=== PATIENT | male | born 1980 | race Caucasian/White ===

== ENCOUNTER → 2016-08-30 | Outpatient (CLI) | payer BC ==
[~2016-08-30] VITALS: Ht 185.4 cm; Wt 208.0 kg
[~2016-08-30] MED LIST: AMBIEN 10MG10 MG PO; AMOXICILLIN 50500 MG PO; ATIVAN 1MG T1 MG/TAB PO; CEPHALEXIN500 M1 PO; CIPRO 500MG TA500 MG PO; CIPRO500 MG PO; DAZIDOX10 MG PO; DESYREL 100MG100 MG PO; DOXYCYCLINE 10100 MG PO; FLEXERIL 1010 MG/TAB PO; FLOMAX 0.40.4 MG/CAP PO; GLUCOPHAGE1000 MG PO; GLUCOPHAGE500 MG/TAB PO; KLONOPIN 0.5MG0.5 MG PO; KLONOPIN 1MG1 MG PO; LORTAB 5/500 501 TAB PO; NAPROSYN500 MG PO; NO HOME MEDICATIONS; NORCO 325 MG-51 TAB PO; NORCO 325 MG-7.1 TAB PO; PEN-VEE K500 MG PO; PERCOCET 325 MG1 TA2 PO; PERCOCET 325 MG1 TAB PO; PRINZIDE 12.5 M1 TA1 PO; PRINZIDE 25 MG-1 TAB PO; PYRIDIUM 100MG100 MG PO; PYRIDIUM200 M1 PO; ULTRAM 50MG TAB50 MG PO; ZOFRAN 4MG T4 MG/TAB PO; ZOFRAN ODT8 MG PO; ZOFRAN8 MG PO; ZOLOFT 100MG100 MG PO; ZOLOFT 50MG50 MG; ZYLOPRIM 300MG300 MG PO
[2016-08-30 12:45] VITALS: BP 144/78; PULSE 101
[2016-08-30 15:19] VITALS: BP 144/78; PULSE 101
== END ==
LOC: LIGHT 10:15
DX: E66.01 Morbid (severe) obesity due to excess calories (principal); Z68.44 Body mass index [BMI] 60.0-69.9, adult; F32.89 Other specified depressive episodes; I10 Essential (primary) hypertension; E16.1 Other hypoglycemia

== ENCOUNTER → 2016-10-11 | Outpatient (CLI) | payer BC ==
[~2016-10-11] VITALS: Ht 185.4 cm; Wt 209.1 kg
[2016-10-11 13:15] VITALS: BP 163/86; PULSE 99
[2016-10-11 17:21] VITALS: BP 163/86; PULSE 99
== END ==
LOC: LIGHT 13:15
DX: I10 Essential (primary) hypertension (principal); E16.1 Other hypoglycemia; F32.89 Other specified depressive episodes; E66.01 Morbid (severe) obesity due to excess calories; Z68.44 Body mass index [BMI] 60.0-69.9, adult

== ENCOUNTER → 2016-10-25 | Outpatient (CLI) | payer BC | LOC: BHSO 08:44 | DX: Z02.89 Encounter for other administrative examinations (principal) ==

== ENCOUNTER 2017-07-16 19:30 | Emergency (ER) | payer BC ==
[~2017-07-16] VITALS: Ht 188 cm; Wt 196.8 kg
[~2017-07-16 19:30] MED LIST changes: +LOPRESSOR 225 MG/TAB; +ZANTAC 150MG T150 MG
[2017-07-16 19:43] VITALS: BP 134/96; TEMP 97.9
[2017-07-16 20:18] LABS: BASO # 0.1 (0.0-0.2); BASO % 0.6 % (0.0-2.0); EOS # 0.6 (0.0-0.7); GRAN # 7.5 (1.4-6.5); GRAN % 65.9 % (42.2-75.2); HEMOGLOBIN 15.8 g/dl (13.5-18.0); LYMPH # 2.4 (1.2-3.4); LYMPH % 20.8 % (20.0-51.0); MEAN CELL VOLUME 82 fl (80.0-100.0); MEAN CORPUSCULAR HEMOGLOBIN 27 pg (27.0-31.0); MEAN CORPUSCULAR HGB CONC 33 g/dl (33.0-37.0); MEAN PLATELET VOLUME 9.1 fl (7.4-10.4); MONO # 0.8 (0.1-0.6); MONO % 7.1 % (1.7-9.3); PLATELET COUNT 335 K/mm3 (130-400); RED BLOOD COUNT 5.85 M/mm3 (4.20-5.60); WHITE BLOOD COUNT 11.4 K/mm3 (4.8-10.8)
[2017-07-16 20:33] LABS: ADJUSTED CALCIUM 9.4 mg/dL (8.4-10.2); ALBUMIN 4.6 gm/dL (3.5-5.0); BILIRUBIN,TOTAL 0.6 mg/dL (0.0-1.0); CALCIUM 9.9 mg/dL (8.4-10.2); CREATININE, serum 0.95 mg/dL (0.66-1.25); POTASSIUM 4.3 mmol/L (3.4-5.0); TOTAL PROTEIN 8.8 gm/dL (6.4-8.2)
[2017-07-16 21:16] LABS: COLLECTION METHOD CLEAN CATCH
[2017-07-16 21:35] LABS: MUCOUS Present /lpf; PH 6 (5-8); SQUAMOUS EPITHELIAL 0-2 /hpf; URINE APPEARANCE Clear; URINE BACTERIA None Seen /hpf; URINE BILIRUBIN Negative (NEGATIVE); URINE BLOOD Negative (NEGATIVE); URINE COLOR Yellow; URINE GLUCOSE Negative (NEGATIVE); URINE KETONE Negative (NEGATIVE); URINE LEUKOCYTE ESTERASE Negative (NEGATIVE); URINE PROTEIN(semi-quant) Negative (NEGATIVE); URINE UROBILINOGEN Negative (NEGATIVE); URINE WBC 0-2 /hpf
[2017-07-16 23:30] VITALS: PULSE 124
== END 2017-07-16 23:26 | disposition home or self-care (01) ==
LOC: COL.ER 19:30
PROVIDERS: Emergency Medicine
DX: K43.9 Ventral hernia without obstruction or gangrene (principal); I10 Essential (primary) hypertension; M10.9 Gout, unspecified; E11.9 Type 2 diabetes mellitus without complications; E66.9 Obesity, unspecified; Z68.43 Body mass index [BMI] 50.0-59.9, adult; Z87.442 Personal history of urinary calculi; Z90.49 Acquired absence of other specified parts of digestive tract; Z87.891 Personal history of nicotine dependence; Z79.84 Long term (current) use of oral hypoglycemic drugs
CPT/HCPCS: J2550; J2765; J3010; J7030; Q9967

== ENCOUNTER 2017-08-11 18:16 | Emergency (ER) | payer BC ==
[~2017-08-11] VITALS: Ht 188 cm; Wt 209.1 kg
[2017-08-11 18:19] VITALS: TEMP 98.2
[2017-08-11 18:45] LABS: BASO # 0.1 (0.0-0.2); BASO % 0.5 % (0.0-2.0); EOS # 0.5 (0.0-0.7); EOS % 3.7 % (0-4.0); GRAN # 9.8 (1.4-6.5); GRAN % 75.1 % (42.2-75.2); HEMATOCRIT 45.4 % (42.0-52.0); LYMPH # 1.9 (1.2-3.4); LYMPH % 14.2 % (20.0-51.0); MEAN CELL VOLUME 82 fl (80.0-100.0); MEAN CORPUSCULAR HEMOGLOBIN 27 pg (27.0-31.0); MEAN CORPUSCULAR HGB CONC 33 g/dl (33.0-37.0); MONO # 0.8 (0.1-0.6); PLATELET COUNT 358 K/mm3 (130-400); RED BLOOD COUNT 5.56 M/mm3 (4.20-5.60); WHITE BLOOD COUNT 13.1 K/mm3 (4.8-10.8)
[2017-08-11 18:50] LABS: ADJUSTED CALCIUM 9.3 mg/dL (8.4-10.2); ALBUMIN 4.5 gm/dL (3.5-5.0); BILIRUBIN,TOTAL 0.8 mg/dL (0.0-1.0); CALCIUM 9.7 mg/dL (8.4-10.2); CREATININE, serum 0.89 mg/dL (0.66-1.25); POTASSIUM 3.7 mmol/L (3.4-5.0); TOTAL PROTEIN 8.9 gm/dL (6.4-8.2)
[2017-08-11] MEDS ORDERED: ZOFRAN 4MG T4 MG/TAB PO (19:56)
[2017-08-11 22:25] VITALS: BP 130/84; PULSE 90
[2017-08-11] MEDS ORDERED: CEPHALEXIN500 M1 PO (22:44)
== END 2017-08-11 22:59 | disposition home or self-care (01) ==
LOC: COL.ER 18:16
PROVIDERS: Emergency Medicine
DX: N20.1 Calculus of ureter (principal); Z87.442 Personal history of urinary calculi; Z79.84 Long term (current) use of oral hypoglycemic drugs
CPT/HCPCS: J1170; J1885; J2405; J7030

== ENCOUNTER 2017-08-22 21:40 | Observation (INO) | payer BC ==
[~2017-08-22] VITALS: Ht 188 cm; Wt 168.1 kg
[~2017-08-22 21:40] MED LIST changes: -LOPRESSOR 225 MG/TAB; +LOPRESSOR 225 MG/TAB PO
[2017-08-22 22:33] LABS: BASO # 0.1 (0.0-0.2); BASO % 0.6 % (0.0-2.0); EOS # 0.4 (0.0-0.7); EOS % 3.3 % (0-4.0); GRAN % 74.5 % (42.2-75.2); HEMATOCRIT 45.5 % (42.0-52.0); HEMOGLOBIN 15.1 g/dl (13.5-18.0); LYMPH # 1.6 (1.2-3.4); MEAN CELL VOLUME 82 fl (80.0-100.0); MEAN CORPUSCULAR HEMOGLOBIN 27 pg (27.0-31.0); MEAN CORPUSCULAR HGB CONC 33 g/dl (33.0-37.0); MONO # 0.7 (0.1-0.6); MONO % 6.2 % (1.7-9.3); PLATELET COUNT 279 K/mm3 (130-400); RED BLOOD COUNT 5.55 M/mm3 (4.20-5.60); WHITE BLOOD COUNT 10.8 K/mm3 (4.8-10.8)
[2017-08-22 22:57] LABS: ADJUSTED CALCIUM 9.5 mg/dL (8.4-10.2); ALBUMIN 4.3 gm/dL (3.5-5.0); BILIRUBIN,TOTAL 0.6 mg/dL (0.0-1.0); C-REACTIVE PROTEIN 1.3 mg/dL (0.0-0.9); CALCIUM 9.7 mg/dL (8.4-10.2); CREATININE, serum 0.84 mg/dL (0.66-1.25); POTASSIUM 3.4 mmol/L (3.4-5.0); TOTAL PROTEIN 8.5 gm/dL (6.4-8.2)
[2017-08-23] VITALS (9 sets, daily range): BP systolic 106–169; BP diastolic 54–102; PULSE 73–81; TEMP 97.6–98.4
[2017-08-23] MEDS ORDERED: ZANTAC 150150 MG (02:48)
[2017-08-23 04:05] LABS: AMPHETAMINE URINE NEGATIVE; BARBITURATES URINE NEGATIVE; BENZODIAZEPINES URINE NEGATIVE; BUPRENORPHINE URINE NEGATIVE; METHADONE URINE NEGATIVE; OPIATES URINE POSITIVE; OXYCODONE URINE NEGATIVE; PHENCYCLIDINE URINE NEGATIVE; PROPOXYPHENE URINE NEGATIVE; THC CANNABINOIDS URINE NEGATIVE; TRICYCLIC ANTIDEPRESS URINE NEGATIVE
[2017-08-23 04:35] LABS: COLLECTION METHOD CLEAN CATCH
[2017-08-23 04:49] LABS: MUCOUS Present /lpf; PH 5 (5-8); SQUAMOUS EPITHELIAL None Seen /hpf; URINE APPEARANCE Clear; URINE BACTERIA Rare /hpf; URINE BILIRUBIN Negative (NEGATIVE); URINE BLOOD 2+ (NEGATIVE); URINE COLOR Yellow; URINE GLUCOSE Negative (NEGATIVE); URINE KETONE Negative (NEGATIVE); URINE LEUKOCYTE ESTERASE Negative (NEGATIVE); URINE PROTEIN(semi-quant) 2+ (NEGATIVE); URINE RBC >50 /hpf; URINE WBC 0-2 /hpf
[2017-08-23 07:34] LABS: ADJUSTED CALCIUM 9.1 mg/dL (8.4-10.2); ALBUMIN 3.5 gm/dL (3.5-5.0); BILIRUBIN,TOTAL 0.5 mg/dL (0.0-1.0); CALCIUM 8.7 mg/dL (8.4-10.2); CREATININE, serum 0.8 mg/dL (0.66-1.25); POTASSIUM 3.6 mmol/L (3.4-5.0); TOTAL PROTEIN 7.3 gm/dL (6.4-8.2)
[2017-08-24 01:47] VITALS: BP 130/69; PULSE 66; TEMP 97.3
[2017-08-24 05:14] VITALS: BP 153/93; PULSE 78; TEMP 98.3
[2017-08-24 08:00] VITALS: BP 139/84; PULSE 79; TEMP 98
== END 2017-08-24 10:40 | disposition home or self-care (01) ==
LOC: COL.ER 21:40 → SURG 08-23 01:19
PROVIDERS: Family Medicine
DX: N13.2 Hydronephrosis with renal and ureteral calculous obstruction (principal); K46.9 Unspecified abdominal hernia without obstruction or gangrene; Z87.442 Personal history of urinary calculi; E66.01 Morbid (severe) obesity due to excess calories; R73.03 Prediabetes; K21.9 Gastro-esophageal reflux disease without esophagitis; I10 Essential (primary) hypertension; Z90.49 Acquired absence of other specified parts of digestive tract; M47.896 Other spondylosis, lumbar region; J40 Bronchitis, not specified as acute or chronic; K44.9 Diaphragmatic hernia without obstruction or gangrene; F32.9 Major depressive disorder, single episode, unspecified; F41.9 Anxiety disorder, unspecified; F17.210 Nicotine dependence, cigarettes, uncomplicated
CPT/HCPCS: 99222-AI; C1769; C2617; G0378; J0690; J1170; J1885; J2405; J2704; J3010; J7030; J7050; Q9967

== ENCOUNTER 2017-09-20 23:22 | Emergency (ER) | payer BC ==
[~2017-09-20] VITALS: Ht 188 cm; Wt 206.4 kg
[~2017-09-20 23:22] MED LIST changes: +ZANTAC 150150 MG
[2017-09-20 23:31] VITALS: BP 159/98; TEMP 97.7
[2017-09-21 00:26] LABS: COLLECTION METHOD CLEAN CATCH
[2017-09-21 00:32] LABS: BASO # 0.1 (0.0-0.2); BASO % 0.4 % (0.0-2.0); EOS # 0.6 (0.0-0.7); GRAN # 8.7 (1.4-6.5); HEMATOCRIT 42.7 % (42.0-52.0); HEMOGLOBIN 14.4 g/dl (13.5-18.0); LYMPH # 2.2 (1.2-3.4); LYMPH % 17.8 % (20.0-51.0); MEAN CELL VOLUME 82 fl (80.0-100.0); MEAN CORPUSCULAR HEMOGLOBIN 28 pg (27.0-31.0); MEAN CORPUSCULAR HGB CONC 34 g/dl (33.0-37.0); MEAN PLATELET VOLUME 9.4 fl (7.4-10.4); MONO # 0.8 (0.1-0.6); MONO % 6.3 % (1.7-9.3); PLATELET COUNT 340 K/mm3 (130-400); RED BLOOD COUNT 5.21 M/mm3 (4.20-5.60); REDCELL DISTRIBUTION WIDTH-CV 14.3 % (11.5-14.5)
[2017-09-21 00:36] LABS: HYALINE CAST >12 /lpf; PH 6 (5-8); SQUAMOUS EPITHELIAL None Seen /hpf; URINE APPEARANCE Cloudy; URINE BACTERIA None Seen /hpf; URINE BILIRUBIN Negative (NEGATIVE); URINE BLOOD 3+ (NEGATIVE); URINE COLOR Red; URINE GLUCOSE Negative (NEGATIVE); URINE KETONE Negative (NEGATIVE); URINE LEUKOCYTE ESTERASE Trace (NEGATIVE); URINE NITRATE Negative (NEGATIVE); URINE PROTEIN(semi-quant) 2+ (NEGATIVE); URINE RBC >50 /hpf; URINE UROBILINOGEN Negative (NEGATIVE)
[2017-09-21 00:45] LABS: ALBUMIN 4.4 gm/dL (3.5-5.0); BILIRUBIN,TOTAL 0.5 mg/dL (0.0-1.0); C-REACTIVE PROTEIN 2.5 mg/dL (0.0-0.9); CALCIUM 9.8 mg/dL (8.4-10.2); CREATININE, serum 0.85 mg/dL (0.66-1.25); POTASSIUM 3.8 mmol/L (3.4-5.0); TOTAL PROTEIN 8.4 gm/dL (6.4-8.2)
[2017-09-21] MEDS ORDERED: ZOFRAN ODT4 MG PO (01:06)
[2017-09-21] MEDS ORDERED: PERCOCET 325 MG1 TA2 PO (01:06)
[2017-09-21] MEDS ORDERED: OMNICEF 300MG300 MG PO (01:06)
[2017-09-21 03:50] VITALS: PULSE 88
== END 2017-09-21 03:52 | disposition home or self-care (01) ==
LOC: COL.ER 23:22
PROVIDERS: Emergency Medicine
DX: R10.9 Unspecified abdominal pain (principal); L02.91 Cutaneous abscess, unspecified; I10 Essential (primary) hypertension; E11.9 Type 2 diabetes mellitus without complications; Z90.49 Acquired absence of other specified parts of digestive tract; Z95.5 Presence of coronary angioplasty implant and graft; Z98.890 Other specified postprocedural states; Z79.84 Long term (current) use of oral hypoglycemic drugs
CPT/HCPCS: J0696; J1170; J1885; J2405; J7030; J7040

== ENCOUNTER 2018-04-25 22:50 | Emergency (ER) | payer BC ==
[~2018-04-25] VITALS: Ht 188 cm; Wt 204.5 kg
[~2018-04-25 22:50] MED LIST changes: +CARAFATE 1GM1 G PO; +OMNICEF 300MG300 MG PO; +PRILOSEC10 MG PO; +PROTONIX 40MG T40 MG PO; +ZOFRAN ODT4 MG PO
[2018-04-25 22:54] VITALS: PULSE 109
[2018-04-25 23:22] LABS: BASO # 0.1 (0.0-0.2); BASO % 0.5 % (0.0-2.0); EOS # 0.2 (0.0-0.7); EOS % 1.4 % (0-4.0); GRAN # 12.3 (1.4-6.5); GRAN % 83.7 % (42.2-75.2); HEMATOCRIT 48.2 % (42.0-52.0); HEMOGLOBIN 15.6 g/dl (13.5-18.0); LYMPH # 1.4 (1.2-3.4); LYMPH % 9.8 % (20.0-51.0); MEAN CELL VOLUME 84 fl (80.0-100.0); MEAN CORPUSCULAR HEMOGLOBIN 27 pg (27.0-31.0); MEAN CORPUSCULAR HGB CONC 32 g/dl (33.0-37.0); MEAN PLATELET VOLUME 9.4 fl (7.4-10.4); MONO # 0.5 (0.1-0.6); MONO % 3.7 % (1.7-9.3); PLATELET COUNT 432 K/mm3 (130-400); RED BLOOD COUNT 5.75 M/mm3 (4.20-5.60)
[2018-04-25 23:27] LABS: INR 1.2 (0.8-3.0); PROTHROMBIN TIME 13.8 SECONDS (9.7-12.8)
[2018-04-25] MEDS ORDERED: DAZIDOX10 MG (23:34)
[2018-04-25 23:38] LABS: ALANINE AMINOTRANSFERASE 52 U/L (21-72); ALBUMIN 4.4 gm/dL (3.5-5.0); ALKALINE PHOSPHATASE 118 U/L (50-136); ANION GAP 16 mmol/L (7-16); AST,SGOT 84 U/L (15-37); BILIRUBIN,TOTAL 0.9 mg/dL (0.0-1.0); BLOOD UREA NITROGEN 16 mg/dL (9-20); CALCIUM 9.3 mg/dL (8.4-10.2); CARBON DIOXIDE 24 mmol/L (22-30); CHLORIDE 101 mmol/L (98-107); CREATININE, serum 1.13 mg/dL (0.66-1.25); GLUCOSE 168 mg/dL (74-106); POTASSIUM 3.9 mmol/L (3.4-5.0); SODIUM 141 mmol/L (137-145)
[2018-04-25 23:49] LABS: TROPONIN-I < 0.012 ng/mL (0.000-0.034)
[2018-04-26 02:57] LABS: COLLECTION METHOD CLEAN CATCH
[2018-04-26 03:16] LABS: GRANULAR CAST >12 /lpf; HYALINE CAST >12 /lpf; MUCOUS Present /lpf; PH 5 (5-8); SQUAMOUS EPITHELIAL 0-2 /hpf; URINE APPEARANCE Cloudy; URINE BACTERIA Rare /hpf; URINE BILIRUBIN Negative (NEGATIVE); URINE BLOOD Negative (NEGATIVE); URINE COLOR Amber; URINE GLUCOSE Negative (NEGATIVE); URINE KETONE Negative (NEGATIVE); URINE LEUKOCYTE ESTERASE Negative (NEGATIVE); URINE NITRATE Negative (NEGATIVE); URINE PROTEIN(semi-quant) 2+ (NEGATIVE); URINE RBC 0-2 /hpf
[2018-04-26 03:48] VITALS: BP 107/62
== END 2018-04-26 03:50 | disposition home or self-care (01) ==
LOC: COL.ER 22:50
PROVIDERS: Emergency Medicine
DX: T67.5XXA Heat exhaustion, unspecified, initial encounter (principal); E11.9 Type 2 diabetes mellitus without complications; I10 Essential (primary) hypertension; K21.9 Gastro-esophageal reflux disease without esophagitis; E66.01 Morbid (severe) obesity due to excess calories; Z90.49 Acquired absence of other specified parts of digestive tract; Z87.891 Personal history of nicotine dependence; Z79.84 Long term (current) use of oral hypoglycemic drugs; Z87.442 Personal history of urinary calculi; Z68.43 Body mass index [BMI] 50.0-59.9, adult
CPT/HCPCS: J2405; J2765; J7030

== ENCOUNTER 2018-07-10 15:42 | Emergency (ER) | payer BC ==
[~2018-07-10] VITALS: Ht 188 cm; Wt 147.3 kg
[~2018-07-10 15:42] MED LIST changes: +DAZIDOX10 MG
[2018-07-10 15:46] VITALS: TEMP 97.9
[2018-07-10 16:25] LABS: BASO # 0.1 (0.0-0.2); BASO % 0.6 % (0.0-2.0); EOS # 0.6 (0.0-0.7); EOS % 5.6 % (0-4.0); GRAN # 7.4 (1.4-6.5); GRAN % 71.6 % (42.2-75.2); HEMATOCRIT 47.2 % (42.0-52.0); HEMOGLOBIN 15.5 g/dl (13.5-18.0); LYMPH # 1.7 (1.2-3.4); LYMPH % 16.5 % (20.0-51.0); MEAN CELL VOLUME 82 fl (80.0-100.0); MEAN CORPUSCULAR HEMOGLOBIN 27 pg (27.0-31.0); MEAN CORPUSCULAR HGB CONC 33 g/dl (33.0-37.0); MONO # 0.5 (0.1-0.6); PLATELET COUNT 346 K/mm3 (130-400); RED BLOOD COUNT 5.77 M/mm3 (4.20-5.60); REDCELL DISTRIBUTION WIDTH-CV 13.9 % (11.5-14.5)
[2018-07-10 16:39] LABS: ALBUMIN 4.1 gm/dL (3.5-5.0); BILIRUBIN,TOTAL 0.4 mg/dL (0.0-1.0); C-REACTIVE PROTEIN 2.6 mg/dL (0.0-0.9); CALCIUM 9.1 mg/dL (8.4-10.2); CREATININE, serum 0.68 mg/dL (0.66-1.25); TOTAL PROTEIN 8.1 gm/dL (6.4-8.2)
[2018-07-10 18:00] VITALS: BP 131/91; PULSE 73
[2018-07-10] MEDS ORDERED: ZOFRAN ODT4 MG PO (18:02)
== END 2018-07-10 18:00 | disposition home or self-care (01) ==
LOC: COL.ER 15:42
PROVIDERS: Emergency Medicine
DX: K46.9 Unspecified abdominal hernia without obstruction or gangrene (principal); I10 Essential (primary) hypertension; E11.9 Type 2 diabetes mellitus without complications; Z90.49 Acquired absence of other specified parts of digestive tract; Z87.442 Personal history of urinary calculi; Z87.891 Personal history of nicotine dependence; Z79.84 Long term (current) use of oral hypoglycemic drugs
CPT/HCPCS: J1170; J2060; J2270; J2405; J7030; Q9967

== ENCOUNTER 2018-07-26 20:55 | Emergency (ER) | payer BC ==
[~2018-07-26] VITALS: Ht 188 cm; Wt 213.6 kg
[2018-07-26 20:59] VITALS: TEMP 97.8
[2018-07-26] MEDS ORDERED: LEXAPRO20 MG PO (21:10)
[2018-07-26 21:41] LABS: BASO # 0.1 (0.0-0.2); BASO % 0.6 % (0.0-2.0); EOS # 0.5 (0.0-0.7); EOS % 3.6 % (0-4.0); GRAN # 9.5 (1.4-6.5); GRAN % 75.5 % (42.2-75.2); HEMATOCRIT 48.1 % (42.0-52.0); HEMOGLOBIN 16.2 g/dl (13.5-18.0); LYMPH # 1.8 (1.2-3.4); MEAN CELL VOLUME 81 fl (80.0-100.0); MEAN CORPUSCULAR HEMOGLOBIN 27 pg (27.0-31.0); MEAN CORPUSCULAR HGB CONC 34 g/dl (33.0-37.0); MONO # 0.7 (0.1-0.6); MONO % 5.7 % (1.7-9.3); PLATELET COUNT 356 K/mm3 (130-400); RED BLOOD COUNT 5.94 M/mm3 (4.20-5.60); REDCELL DISTRIBUTION WIDTH-CV 13.9 % (11.5-14.5)
[2018-07-26 21:58] LABS: ALBUMIN 4.4 gm/dL (3.5-5.0); BILIRUBIN,TOTAL 0.7 mg/dL (0.0-1.0); C-REACTIVE PROTEIN 2.3 mg/dL (0.0-0.9); CALCIUM 10.3 mg/dL (8.4-10.2); CREATININE, serum 0.72 mg/dL (0.66-1.25); POTASSIUM 4.3 mmol/L (3.4-5.0); TOTAL PROTEIN 8.9 gm/dL (6.4-8.2)
[2018-07-27 00:08] LABS: COLLECTION METHOD CLEAN CATCH
[2018-07-27 00:16] LABS: MUCOUS Present /lpf; PH 5 (5-8); SQUAMOUS EPITHELIAL 0-2 /hpf; URINE APPEARANCE Hazy; URINE BACTERIA Rare /hpf; URINE BILIRUBIN Negative (NEGATIVE); URINE BLOOD Negative (NEGATIVE); URINE COLOR Yellow; URINE GLUCOSE Negative (NEGATIVE); URINE KETONE Negative (NEGATIVE); URINE LEUKOCYTE ESTERASE Negative (NEGATIVE); URINE NITRATE Negative (NEGATIVE); URINE PROTEIN(semi-quant) 2+ (NEGATIVE); URINE UROBILINOGEN Negative (NEGATIVE)
[2018-07-27 01:40] VITALS: BP 130/77; PULSE 121
== END 2018-07-27 02:10 | disposition short-term general hospital (02) ==
LOC: COL.ER 20:55
PROVIDERS: Nurse Practitioner
DX: K56.609 Unspecified intestinal obstruction, unspecified as to partial versus complete obstruction (principal); E11.9 Type 2 diabetes mellitus without complications; I10 Essential (primary) hypertension; F41.9 Anxiety disorder, unspecified; F32.9 Major depressive disorder, single episode, unspecified; F17.210 Nicotine dependence, cigarettes, uncomplicated; Z87.442 Personal history of urinary calculi; Z98.890 Other specified postprocedural states; Z90.49 Acquired absence of other specified parts of digestive tract; Z79.84 Long term (current) use of oral hypoglycemic drugs
CPT/HCPCS: J1170; J1885; J2405; J2550; J7030; Q9967

== ENCOUNTER 2018-09-03 00:49 | Inpatient (IN) | payer BC ==
[2018-09-03] VITALS (8 sets, daily range): BP systolic 103–140; BP diastolic 62–106; PULSE 85–100; TEMP 97.3–98.5
[~2018-09-03] VITALS: Ht 188 cm; Wt 210.0 kg
[~2018-09-03 00:49] MED LIST changes: +LEXAPRO20 MG PO
[2018-09-03 01:29] LABS: BASO # 0.1 (0.0-0.2); BASO % 0.5 % (0.0-2.0); EOS # 0.6 (0.0-0.7); GRAN # 7.8 (1.4-6.5); GRAN % 68.1 % (42.2-75.2); HEMATOCRIT 43.8 % (42.0-52.0); HEMOGLOBIN 14.4 g/dl (13.5-18.0); LYMPH # 2.2 (1.2-3.4); LYMPH % 19.3 % (20.0-51.0); MEAN CELL VOLUME 83 fl (80.0-100.0); MEAN CORPUSCULAR HEMOGLOBIN 27 pg (27.0-31.0); MEAN CORPUSCULAR HGB CONC 33 g/dl (33.0-37.0); MEAN PLATELET VOLUME 9.5 fl (7.4-10.4); MONO # 0.7 (0.1-0.6); MONO % 6.5 % (1.7-9.3); PLATELET COUNT 317 K/mm3 (130-400); REDCELL DISTRIBUTION WIDTH-CV 13.8 % (11.5-14.5)
[2018-09-03] MEDS ORDERED: PRIL40 PO (01:37)
[2018-09-03 01:38] LABS: ALBUMIN 3.8 gm/dL (3.5-5.0); BILIRUBIN,TOTAL 0.3 mg/dL (0.0-1.0); C-REACTIVE PROTEIN 1.2 mg/dL (0.0-0.9); CALCIUM 9.1 mg/dL (8.4-10.2); CREATININE, serum 0.65 mg/dL (0.66-1.25); POTASSIUM 4.3 mmol/L (3.4-5.0); TOTAL PROTEIN 7.6 gm/dL (6.4-8.2)
[2018-09-03] MEDS ORDERED: ROXICODONE 55 MG/TAB PO (01:38)
--- NOTE | 2018-09-03 05:15 | NUR ---
PT ADMITTED TO 322-2 WITH Dx OF SMALL BOWEL OBSTRUCTION. DILAUDID ADMIN. PT A BIT NAUSEATED. ADMITTING M.D. CALLED REGARDING PAIN AND NAUSEA. 5 PAGE ADMISSION ASSESSMENT COMPLETE. PT PUT IN BARIATRIC BED.
--- NOTE | 2018-09-03 08:00 | NUR ---
PATIENT IS A&O. NOTED HR OF 102. VSS. PATIENT RATES PAIN HIGH WHENEVER ASKED IN RLQ. PATIENT HAS HX OF SBO AND HERNIA REPAIR. HERNIA APPEARS TO HAVE RE-HERNIATED AND IS BULDGING IN RLQ WHERE PATIENT REPORTS PAIN. PATIENT CALLS OUT FOR PAIN MEDS EVERY HOUR. PATIENT IS VERY OBESE WITH HYPO BOWLS. C/O N/V LAST NIGHT. PATIENT REFUSING NG AT THIS TIME. BOWL SOUNDS HYPO ACTIVE EXCEPT OVER HERNIA WHERE BOWL SOUNDS ARE ACTIVE. CURRENTLY NPO. HEAD TO TOE ASSESSMENT COMPLETE.
--- NOTE | 2018-09-03 11:00 | NUR ---
PATIENT CALLING OUT EVERY HOUR FOR IV DIALUDID. SEE ORDERS FOR DILAUDID GERIATRIC NURSE
--- NOTE | 2018-09-03 12:50 | NUR ---
PATIENT CALLED OUT FOR NAUSEA MEDS, GIVEN BY RN. PATIENT IS NOT INTERESTED IN HAVING AN NG PLACED FOR HIS OBSTRUCTION.
--- NOTE | 2018-09-03 14:20 | NUR ---
PATIENT CALLED OUT DUE TO PURCHASING EXPEDITOR BEEPING. PATIENT REACHED MAX LIMIT AND SEEMS ANNOYED THAT HE IS LOCKED OUT. NURSING EXPLAINED MEDICATION SAFETY AND RISK FOR OD. PATIENT DIDN'T SEEM CONCERNED ABOUT OD. PATIENT WENT THROUGH [facility] OF A 30CC DILAUDID SYRING SINCE PURCHASING EXPEDITOR WAS INITIATED JUST BEFORE NOON.
--- NOTE | 2018-09-03 15:19 | NUR ---
SW met with patient to discuss discharge planning. Patient lives in [facility]. His PCP is Dr Jermaine Peguero and he obtains his medications from [facility]. Patients contact is his father Neftaly, . ANNAMARIE will continue to follow for discharge needs.
--- NOTE | 2018-09-03 20:00 | NUR ---
Assessment completed. Patient is A&O x 4, resting in bed watching television. VSS. Dilaudid POUNCING MACHINE OPERATOR available for abdominal pain control. Reports pain a 7/10 to RLQ abdomen. Hypoactive bowel sounds noted. Denies any nausea at this time. Voiding with no difficulities. IVF infusing per orders. NPO at this time. Denies any concerns or needs. Bed is in a low position with call light in reach.
[2018-09-04] VITALS (11 sets, daily range): BP systolic 112–147; BP diastolic 58–89; PULSE 74–92; TEMP 97.5–98.2
--- NOTE | 2018-09-04 01:00 | NUR ---
Patient is resting in bed with eyes closed, does not appear to be in any distress. Dilaudid HAND STRIPPER button is at bedside and available for pain control as needed.
--- NOTE | 2018-09-04 04:06 | NUR ---
Patient has been resting for short periods at a time. Dilaudid HIGH DENSITY PRESS LABORER remains available for pain control, reports abdomen is still "sore." Continues to deny any nausea and reports not passing gas. IVF remain infusing. Up with standby assist, gait is steady. Denies any concerns or needs at this time, call light is within reach.
[2018-09-04 07:21] LABS: ALBUMIN 3.3 gm/dL (3.5-5.0); BILIRUBIN,TOTAL 0.6 mg/dL (0.0-1.0); CALCIUM 8.7 mg/dL (8.4-10.2); CREATININE, serum 0.65 mg/dL (0.66-1.25); POTASSIUM 4.6 mmol/L (3.4-5.0); TOTAL PROTEIN 6.9 gm/dL (6.4-8.2)
--- NOTE | 2018-09-04 08:00 | NUR ---
PATIENT RESTING IN BED WITH TV ON. PATIENT IS A&O. VSS. ALL LUNG GARCIA DIMINISHED UPON AUSCULTATION. PATIENT DENIES SHORTNESS OF BREATH. BOWEL SOUNDS ACTIVE ALL FOUR QUADRANTS. PATIENT IS NPO AT THIS TIME. PATIENT STATES THAT HE HAS HAD NAUSEA, BUT DENIES VOMITING. PATIENT DENIES THE NEED FOR ANTIEMETIC AT THIS TIME. GENERALIZED WEAKNESS NOTED. IV FLUIDS INFUSING TO LEFT AC IV VIA PUMP WITH INTERMEDIATE CARD TENDER PUMP. POSITIVE PEDAL PULSES EQUAL BILATERALLY. CALL LIGHT WITHIN REACH. NO OTHER NEEDS AT THIS TIME.
[2018-09-04 14:02] LABS: HEMATOCRIT 38.1 % (42.0-52.0); MEAN CELL VOLUME 85 fl (80.0-100.0); MEAN CORPUSCULAR HEMOGLOBIN 27 pg (27.0-31.0); MEAN CORPUSCULAR HGB CONC 32 g/dl (33.0-37.0); MEAN PLATELET VOLUME 9.2 fl (7.4-10.4); PLATELET COUNT 234 K/mm3 (130-400); RED BLOOD COUNT 4.51 M/mm3 (4.20-5.60)
[2018-09-04 14:24] LABS: HEMOGLOBIN 12.3 g/dl (13.5-18.0)
[2018-09-04 14:32] LABS: ANISOCYTOSIS 2+; BAND 4 % (0-10); EOSINOPHIL 2 % (0-4); LYMPHOCYTE 28 % (20.0-51.0); NEUTROPHILS 63 % (42.0-75.2); PLATELET ESTIMATE NORMAL (NORMAL)
[2018-09-04 14:33] LABS: MICROCYTOSIS 1+
--- NOTE | 2018-09-04 19:15 | NUR ---
PATIENT SHOWERED THIS AFTERNOON. PATIENT RESTING IN BED WAITING FOR CLEAR LIQUIDS TRAY. CALL LIGHT WITHIN REACH. REPORT GIVEN TO GUSTAVO CHUA.
--- NOTE | 2018-09-04 20:00 | NUR ---
Patient resting in bed at this time. Patient is sleeping, but rouses easily. PLANT MAINTENANCE MANAGER in place per order, dilaudid level one. Patient states pain is well controlled. Patient reports that he has been passing gas today, but no bowel movemnts to report yet. Bowel sounds are slow, but present in all quadrents. Patient denies further needs at this time, call light within reach.
[2018-09-05] VITALS (10 sets, daily range): BP systolic 128–147; BP diastolic 69–89; PULSE 81–91; TEMP 97.6–98.4
--- NOTE | 2018-09-05 05:42 | NUR ---
Patient rested well overnight. Dilaudid level 1 EXTRACTOR AND WRINGER OPERATOR remains in place, patient continues to report pain is well controlled. Patient denies further needs at this time, call light within reach.
--- NOTE | 2018-09-05 20:42 | NUR ---
Pt in bed resting and watching TV, has C/O pain, shift assessments complete with no significant findings, left Pt call light in reach, bed in lowest position.
[2018-09-06 00:33] VITALS: BP 130/76; PULSE 83; TEMP 98.6
[2018-09-06 04:49] VITALS: BP 136/65; PULSE 68; TEMP 98.4
--- NOTE | 2018-09-06 05:07 | NUR ---
Pt did not sleep well during the night, he received pain medications regularly throughout the night q2h his void output has been adequate, Vs have been stable.
--- NOTE | 2018-09-06 08:10 | NUR ---
Patient continues to have pain. He is rating pain at 5 on a 0-10 scale. No complaints of nausea. Patient was scheduled to get miralax but refused. He stated he had 3 BM's in the night. Fiatt given for pain. Encouraged patient to ambulate this morning. No other changes at this time. Call light within reach.
[2018-09-06 08:36] VITALS: BP 133/77; PULSE 82; TEMP 97.6
[2018-09-06 12:24] VITALS: BP 140/83; PULSE 80; TEMP 97.8
[2018-09-06] MEDS ORDERED: PERCOCET 325 MG1 TA2 PO (13:42)
[2018-09-06 13:44] LABS: BASO % 0.3 % (0.0-2.0); EOS # 0.4 (0.0-0.7); EOS % 7.3 % (0-4.0); GRAN # 3.8 (1.4-6.5); GRAN % 66.4 % (42.2-75.2); HEMATOCRIT 37.9 % (42.0-52.0); HEMOGLOBIN 12.3 g/dl (13.5-18.0); LYMPH # 1.1 (1.2-3.4); LYMPH % 19.8 % (20.0-51.0); MEAN CELL VOLUME 84 fl (80.0-100.0); MEAN CORPUSCULAR HEMOGLOBIN 27 pg (27.0-31.0); MEAN CORPUSCULAR HGB CONC 33 g/dl (33.0-37.0); MEAN PLATELET VOLUME 8.8 fl (7.4-10.4); MONO # 0.3 (0.1-0.6); MONO % 5.9 % (1.7-9.3); PLATELET COUNT 210 K/mm3 (130-400); RED BLOOD COUNT 4.52 M/mm3 (4.20-5.60); REDCELL DISTRIBUTION WIDTH-CV 13.9 % (11.5-14.5)
[2018-09-06 13:55] LABS: ALBUMIN 3.3 gm/dL (3.5-5.0); CALCIUM 8.9 mg/dL (8.4-10.2); CREATININE, serum 0.62 mg/dL (0.66-1.25); PHOSPHOROUS 4.6 mg/dL (2.5-4.5); POTASSIUM 4.1 mmol/L (3.4-5.0)
--- NOTE | 2018-09-06 15:30 | NUR ---
Patient is discharging home. Discharge instructions discussed with patient. INT discontinued. Explained he has a script to get filled. Copies of discharge instructions sent with patient. No follow up scheduled unless needed. Patient walked out with this nurse.
== END 2018-09-06 15:45 | disposition home or self-care (01) | DRG 394 ==
LOC: COL.ER 00:49 → SURG 04:09
PROVIDERS: Emergency Medicine; ADMIT Surgery
DX: K43.0 Incisional hernia with obstruction, without gangrene (principal); Z68.43 Body mass index [BMI] 50.0-59.9, adult; E66.01 Morbid (severe) obesity due to excess calories; F17.210 Nicotine dependence, cigarettes, uncomplicated
CPT/HCPCS: J1170; J1200; J2405; J7120; Q9967

== ENCOUNTER 2018-10-03 19:10 | Observation (INO) | payer BC ==
[~2018-10-03] VITALS: Ht 188 cm; Wt 204.5 kg
[~2018-10-03 19:10] MED LIST changes: +PRIL40 PO; +ROXICODONE 55 MG/TAB PO
[2018-10-03 19:32] LABS: BASO # 0.1 (0.0-0.2); BASO % 0.7 % (0.0-2.0); EOS # 0.6 (0.0-0.7); EOS % 5.4 % (0-4.0); GRAN # 7.1 (1.4-6.5); HEMATOCRIT 47.2 % (42.0-52.0); HEMOGLOBIN 15.3 g/dl (13.5-18.0); LYMPH # 2.6 (1.2-3.4); LYMPH % 22.7 % (20.0-51.0); MEAN CELL VOLUME 82 fl (80.0-100.0); MEAN CORPUSCULAR HEMOGLOBIN 27 pg (27.0-31.0); MEAN CORPUSCULAR HGB CONC 32 g/dl (33.0-37.0); MEAN PLATELET VOLUME 9.4 fl (7.4-10.4); MONO % 8.7 % (1.7-9.3); PLATELET COUNT 344 K/mm3 (130-400); RED BLOOD COUNT 5.75 M/mm3 (4.20-5.60); REDCELL DISTRIBUTION WIDTH-CV 13.8 % (11.5-14.5)
[2018-10-03] MEDS ORDERED: OXY IR5 MG PO (19:34)
[2018-10-03 19:42] LABS: ALBUMIN 4.3 gm/dL (3.5-5.0); BILIRUBIN,TOTAL 0.9 mg/dL (0.0-1.0); CALCIUM 9.3 mg/dL (8.4-10.2); CREATININE, serum 0.88 mg/dL (0.66-1.25); POTASSIUM 4.2 mmol/L (3.4-5.0); TOTAL PROTEIN 8.5 gm/dL (6.4-8.2)
--- NOTE | 2018-10-03 23:53 | NUR ---
Pt. arrived to the floor via stretcher. Pt. able to ambulate to the bed independently. Pt. is A&OX3, assessment complete. IV to lt. ac patent, IV fluids infusing per orders. Pt. reports pain at a 7 on pain scale at this time. Will give pain meds per orders. Pt. denies further needs, call light within reach.
[2018-10-04] VITALS (11 sets, daily range): BP systolic 124–143; BP diastolic 66–86; PULSE 83–91; TEMP 97.6–98.7
[2018-10-04 01:30] LABS: COLLECTION METHOD CLEAN CATCH
[2018-10-04 01:37] LABS: MUCOUS Present /lpf; PH 5 (5-8); SQUAMOUS EPITHELIAL 0-2 /hpf; URINE APPEARANCE Clear; URINE BACTERIA None Seen /hpf; URINE BILIRUBIN Negative (NEGATIVE); URINE BLOOD 2+ (NEGATIVE); URINE COLOR Yellow; URINE GLUCOSE Negative (NEGATIVE); URINE KETONE Negative (NEGATIVE); URINE LEUKOCYTE ESTERASE Negative (NEGATIVE); URINE NITRATE Negative (NEGATIVE); URINE PROTEIN(semi-quant) 1+ (NEGATIVE); URINE RBC 20-50 /hpf
--- NOTE | 2018-10-04 12:30 | NUR ---
PATIENT GOING DOWN TO OR VIA CART
--- NOTE | 2018-10-04 14:30 | NUR ---
SW atttempted to meet with patient.
--- NOTE | 2018-10-04 15:00 | NUR ---
PATIENT BACK IN ROOM POST OP. ORIENTED BUT DROWSY. VSS. C/O MILD DISCOMFORT IN PENIS. HEAD TO TOE ASSESSMENT WNL. PATIENT ASKING TO EAT. WILL DISCHARGE HOME WHEN CRITERIA MEET.
--- NOTE | 2018-10-04 19:00 | NUR ---
Patient awake, has eaten all of dinner tray and asking to order another. Has not voided. Is on room air with Sa02 90%. Has 2 stents taped to penis. Denies pain at this time.
--- NOTE | 2018-10-04 19:30 | NUR ---
Patient up in chair at bedside. Has voided 400cc of bloody urine. Has eaten all of second dinner tray. Reports burning with urination, was reassured this is normal and to increase oral fluids. Patient ready for discharge.
--- NOTE | 2018-10-04 19:50 | NUR ---
Reviewed discharge instructions with patient, including the discontinuation of stents on Monday by the patient. Patient appeared apprehensive regarding the removal by himself, did review and write out the instructions for the patient. Encouraged to call Dr Bourgeois's office if unable to remove the stents on his own. Answered all questions at this time. Removed SL from left AC with angiocath intact. Patient calling for his ride.
--- NOTE | 2018-10-04 20:00 | NUR ---
Discharged to private vehicle per ambulatory status. Belongings and discharge instructions sent with patient. Accompanied by surgical staff.
== END 2018-10-04 20:00 | disposition home or self-care (01) ==
LOC: COL.ER 19:10 → SURG 22:03
PROVIDERS: Emergency Medicine; ADMIT Urology
DX: N20.2 Calculus of kidney with calculus of ureter (principal); E79.0 Hyperuricemia without signs of inflammatory arthritis and tophaceous disease; E11.9 Type 2 diabetes mellitus without complications; F17.210 Nicotine dependence, cigarettes, uncomplicated; I10 Essential (primary) hypertension; K21.9 Gastro-esophageal reflux disease without esophagitis; M19.90 Unspecified osteoarthritis, unspecified site; K76.0 Fatty (change of) liver, not elsewhere classified; E66.01 Morbid (severe) obesity due to excess calories; Z68.43 Body mass index [BMI] 50.0-59.9, adult; Z79.84 Long term (current) use of oral hypoglycemic drugs
CPT/HCPCS: C1769; C1894; C2617; G0378; J0690; J1100; J1170; J1885; J2405; J2550; J2704; J3010; J7030; Q9967

== ENCOUNTER 2018-10-06 06:32 | Emergency (ER) | payer BC ==
[~2018-10-06] VITALS: Ht 188 cm; Wt 204.5 kg
[~2018-10-06 06:32] MED LIST changes: +OXY IR5 MG PO
[2018-10-06 07:07] LABS: BASO % 0.3 % (0.0-2.0); EOS # 0.1 (0.0-0.7); EOS % 1.2 % (0-4.0); GRAN # 6.6 (1.4-6.5); GRAN % 64.4 % (42.2-75.2); HEMATOCRIT 41.9 % (42.0-52.0); HEMOGLOBIN 13.8 g/dl (13.5-18.0); LYMPH # 2.6 (1.2-3.4); LYMPH % 25.2 % (20.0-51.0); MEAN CELL VOLUME 83 fl (80.0-100.0); MEAN CORPUSCULAR HEMOGLOBIN 27 pg (27.0-31.0); MEAN CORPUSCULAR HGB CONC 33 g/dl (33.0-37.0); MEAN PLATELET VOLUME 9.7 fl (7.4-10.4); MONO # 0.8 (0.1-0.6); MONO % 7.9 % (1.7-9.3); PLATELET COUNT 274 K/mm3 (130-400); RED BLOOD COUNT 5.08 M/mm3 (4.20-5.60); REDCELL DISTRIBUTION WIDTH-CV 13.7 % (11.5-14.5)
[2018-10-06 07:18] LABS: COLLECTION METHOD CLEAN CATCH
[2018-10-06 07:21] LABS: CALCIUM 8.5 mg/dL (8.4-10.2); CREATININE, serum 0.73 mg/dL (0.66-1.25); POTASSIUM 3.6 mmol/L (3.4-5.0)
[2018-10-06 07:32] LABS: PH 6 (5-8); SQUAMOUS EPITHELIAL None Seen /hpf; URINE APPEARANCE Cloudy; URINE BACTERIA None Seen /hpf; URINE BILIRUBIN Negative (NEGATIVE); URINE BLOOD 3+ (NEGATIVE); URINE COLOR Red; URINE GLUCOSE 1+ (NEGATIVE); URINE KETONE Negative (NEGATIVE); URINE LEUKOCYTE ESTERASE 2+ (NEGATIVE); URINE NITRATE Negative (NEGATIVE); URINE PROTEIN(semi-quant) 2+ (NEGATIVE); URINE RBC >50 /hpf; URINE UROBILINOGEN Negative (NEGATIVE); URINE WBC None Seen /hpf
[2018-10-06] MEDS ORDERED: PERCOCET 325 MG1 TA2 PO (07:55)
[2018-10-06] MEDS ORDERED: PHENERGAN 25 TA25 MG PO (11:08)
[2018-10-06 11:45] VITALS: BP 148/101; PULSE 85
== END 2018-10-06 11:47 | disposition home or self-care (01) ==
LOC: COL.ER 06:32
PROVIDERS: Emergency Medicine
DX: N23 Unspecified renal colic (principal); E66.01 Morbid (severe) obesity due to excess calories; F17.210 Nicotine dependence, cigarettes, uncomplicated; Z68.43 Body mass index [BMI] 50.0-59.9, adult; Z87.442 Personal history of urinary calculi; Z79.84 Long term (current) use of oral hypoglycemic drugs; Z79.899 Other long term (current) drug therapy
CPT/HCPCS: J0780; J1170; J1885; J1940; J2405; J3010; J7030

== ENCOUNTER 2018-10-10 04:17 | Observation (INO) | payer BC ==
[~2018-10-10] VITALS: Ht 188 cm; Wt 213.2 kg
[~2018-10-10 04:17] MED LIST changes: +PHENERGAN 25 TA25 MG PO
[2018-10-10] MEDS ORDERED: FLOMAX 0.40.4 MG/CAP PO (04:38)
[2018-10-10 04:55] LABS: BASO # 0.1 (0.0-0.2); BASO % 0.6 % (0.0-2.0); EOS # 0.6 (0.0-0.7); EOS % 5.8 % (0-4.0); GRAN # 7.5 (1.4-6.5); GRAN % 70.9 % (42.2-75.2); HEMATOCRIT 42.7 % (42.0-52.0); LYMPH # 1.7 (1.2-3.4); LYMPH % 16.3 % (20.0-51.0); MEAN CELL VOLUME 82 fl (80.0-100.0); MEAN CORPUSCULAR HEMOGLOBIN 27 pg (27.0-31.0); MEAN CORPUSCULAR HGB CONC 33 g/dl (33.0-37.0); MEAN PLATELET VOLUME 9.2 fl (7.4-10.4); MONO # 0.6 (0.1-0.6); MONO % 5.5 % (1.7-9.3); PLATELET COUNT 309 K/mm3 (130-400); RED BLOOD COUNT 5.19 M/mm3 (4.20-5.60); REDCELL DISTRIBUTION WIDTH-CV 14.1 % (11.5-14.5)
[2018-10-10 05:05] LABS: ALBUMIN 3.7 gm/dL (3.5-5.0); BILIRUBIN,TOTAL 0.5 mg/dL (0.0-1.0); CREATININE, serum 0.89 mg/dL (0.66-1.25); POTASSIUM 3.9 mmol/L (3.4-5.0); TOTAL PROTEIN 7.3 gm/dL (6.4-8.2)
[2018-10-10 07:20] LABS: COLLECTION METHOD CLEAN CATCH
[2018-10-10 07:27] LABS: MUCOUS Present /lpf; PH 6 (5-8); SQUAMOUS EPITHELIAL 0-2 /hpf; URINE APPEARANCE Clear; URINE BILIRUBIN Negative (NEGATIVE); URINE BLOOD 3+ (NEGATIVE); URINE COLOR Yellow; URINE GLUCOSE Negative (NEGATIVE); URINE KETONE Negative (NEGATIVE); URINE LEUKOCYTE ESTERASE Negative (NEGATIVE); URINE NITRATE Negative (NEGATIVE); URINE PROTEIN(semi-quant) Negative (NEGATIVE); URINE RBC >50 /hpf; URINE UROBILINOGEN Negative (NEGATIVE)
[2018-10-10 07:30] LABS: URINE BACTERIA None Seen /hpf
[2018-10-10 09:04] VITALS: BP 141/94; PULSE 92; TEMP 98.2
--- NOTE | 2018-10-10 09:15 | NUR ---
arrived on unit from ED per WC at approx 0900, assisted out of WC and is changing into gown, denies needs at this time, is watching TV
--- NOTE | 2018-10-10 10:00 | NUR ---
c/o pain and medicated with dilaudid 1mg slow IV, started admission assessment but patient is grimacing and c/o pain, physical assessment completed, will finish when patient is less uncomfortable, also c/o some nausea, will notify for order
--- NOTE | 2018-10-10 10:49 | NUR ---
resting in bed with lights off watching TV, medicated with zofran 4mg slow IV for c/os nausea
--- NOTE | 2018-10-10 11:45 | NUR ---
appears to be dozing, in bed with lights off, eyes closed, resp quiet and easy
[2018-10-10 12:12] VITALS: BP 139/85; PULSE 91; TEMP 97.5
--- NOTE | 2018-10-10 13:00 | NUR ---
requesting pain med, informed him it is too early at this time, will medicate when time appropriate,
--- NOTE | 2018-10-10 13:35 | NUR ---
medicated wtih dilaudid 1mg slow IV
--- NOTE | 2018-10-10 14:15 | NUR ---
resting in bed with lights off, eyes closed, TV off
--- NOTE | 2018-10-10 16:11 | NUR ---
Dr Zhao in to see patient
--- NOTE | 2018-10-10 16:35 | NUR ---
medicated with roxicodone 5mg po for c/os pain, given water to drink
[2018-10-10 17:05] VITALS: BP 132/79; PULSE 81; TEMP 98.4
--- NOTE | 2018-10-10 18:03 | NUR ---
appears to be sleeping, in bed with lights off, eyes closed, resp quiet and easy
--- NOTE | 2018-10-10 18:26 | NUR ---
c/o pain and medicated with dilaudid 0.5mg slow IV, clear liquid tray ordered
--- NOTE | 2018-10-10 19:04 | NUR ---
bedside shift report given to GUSTAVO Brown
--- NOTE | 2018-10-10 20:40 | NUR ---
PATIENT REPORTING RT LOWER ABDOMINAL PAIN 04/06, AFTER CONSUMING 1500CC OF CLEAR LIQUIDS. DR BARNETT NOTIFIED OF PATIENTS REQUEST FOR MORE PAIN MEDS. ONE TIME ORDER OF DILAUDID 0.5MG THEN TO RESUME EVERY 4HRS NEEDED FOR PAIN. PATIENT INFORMED AND VERBALIZED UNDERSTANDING. ENCOURAGED PATIENT TO AMBULATE AND LIMIT CLEAR LIQUID INTAKE AT THIS TIME.
--- NOTE | 2018-10-10 21:30 | NUR ---
Patient reporting pain continues to right abdomen, constant and cramping with pressure. Has asked "who can override that doctors order for pain medications or do I need to leave here and go to a different hospital?" Did advise patient to change position, ambulate or sit in chair for awhile to see if he can pass some gas. Educated on importance of activity for the bowels. Patient verbalized he would try.
[2018-10-11] VITALS (7 sets, daily range): BP systolic 115–146; BP diastolic 62–80; PULSE 73–92; TEMP 97.5–98.7
--- NOTE | 2018-10-11 01:03 | NUR ---
Patient in bed, groaning and stating "I can't take this anymore, this constant pressure in my stomach". Offered the Oxycodone 5mg which he takes for the 10/10 pain. Found patient had drank 4 grape juices and reminded he needed to limit oral fluids as this seems to increase abdominal pain. Patient asked to have doctor called again, also asked if increasing the amount of the Dilaudid would make it last longer. Patient denies passing gas. Was up in chair over an hour this shift.
--- NOTE | 2018-10-11 01:12 | NUR ---
talked with [employer] Open Stack Administrator Kelly regarding patients requests.
--- NOTE | 2018-10-11 01:18 | NUR ---
Spoke with Dr Zhao again about patients request for pain meds. Patient is not complaining or asking for nausea meds, only reporting constant pressure/cramping to right lower abdomen. Dr Zhao okays Clonazepam 0.5mg po for anxiety, as patient reports he has taken this in the past. No increase in dosage or frequency of pain meds at this time.
--- NOTE | 2018-10-11 01:39 | NUR ---
Patient medicated with Clonazepam 0.5mg po now for anxiety. Informed pain meds would continue every 4hrs, next available dose will be 0215. Verbalized understanding.
--- NOTE | 2018-10-11 02:15 | NUR ---
Medicated with IV Dilaudid 1mg now. Patient reports pain 8/10 to right lower abdomen.
[2018-10-11 06:05] LABS: BASO % 0.3 % (0.0-2.0); EOS # 0.4 (0.0-0.7); EOS % 6.9 % (0-4.0); GRAN # 3.9 (1.4-6.5); GRAN % 62.1 % (42.2-75.2); HEMATOCRIT 39.1 % (42.0-52.0); HEMOGLOBIN 12.4 g/dl (13.5-18.0); LYMPH # 1.4 (1.2-3.4); MEAN CELL VOLUME 86 fl (80.0-100.0); MEAN CORPUSCULAR HEMOGLOBIN 27 pg (27.0-31.0); MEAN CORPUSCULAR HGB CONC 32 g/dl (33.0-37.0); MONO # 0.4 (0.1-0.6); MONO % 6.7 % (1.7-9.3); PLATELET COUNT 230 K/mm3 (130-400); RED BLOOD COUNT 4.56 M/mm3 (4.20-5.60); REDCELL DISTRIBUTION WIDTH-CV 14.5 % (11.5-14.5)
--- NOTE | 2018-10-11 06:25 | NUR ---
Patient requesting pain meds. Dilaudid 1mg IV given now for pain 7/10 to right lower abdomen. Reports he slept 1.5 hrs after the Clonazepam. Pain has been constant, no flatus.
[2018-10-11 06:32] LABS: CREATININE, serum 0.79 mg/dL (0.66-1.25); POTASSIUM 4.1 mmol/L (3.4-5.0)
--- NOTE | 2018-10-11 10:02 | NUR ---
ANNAMARIE and SW student met with the patient to discuss discharge plan. The patient lives in [place] with a roommate. The patient does not use any DME and reports independence with ADLs. The patient's PCP is Dr. Peguero and he receives his medications at [facility]. The patient reports no difficulties obtaining his medications. SW asked the patient if he has a DPOA-HC completed. The patient reports that he does not have a DPOA-HC and stated that he was not interested in completing one at this time. Patient plans to reurn home upon discharge. No additional needs at this time.
--- NOTE | 2018-10-11 13:15 | NUR ---
Initial visit; Patient thanked Signals Intelligence Superintendent for looking in on him and mentioned when asked that he has a support system at home. He told Signals Intelligence Superintendent to have a good day. Signals Intelligence Superintendent will follow up.
--- NOTE | 2018-10-11 13:32 | NUR ---
patient reported a pain level of 5 out of a 1-10 score. denied need for further pain intervetions. ambulated 300 ft and left patient sitting in chair. patient rep[orted no further needs. reported off to dorothy CHEN.
--- NOTE | 2018-10-11 22:13 | NUR ---
Patient in bed. Had consumed regular ADA diet, with continued complaint of pressure and cramping to right lower abdomen. No nausea. Rates pain 8/10. Medicated with Dilaudid 1mg IV now with Klonopin 0.5mg po for mild anxiety. IVF infusing to left forearm at 125cc/hr without redness or swelling. Reports ambulating in hallway x2 today and sitting up in chair 2 hours. Denies passing flatus. Bowel sounds are active.
--- NOTE | 2018-10-12 02:18 | NUR ---
Patient reports passing gas. Medicated with IV Dilaudid 1mg and Oxycodone 5mg po at this time for pain 7/10 to right abdomen.
[2018-10-12 04:57] VITALS: BP 125/72; PULSE 84; TEMP 98.6
--- NOTE | 2018-10-12 06:29 | NUR ---
Offers no complaints at this time.
--- NOTE | 2018-10-12 07:14 | NUR ---
RECEIVED REPORT FROM OFF-GOING NURSE. PATIENT PASSED GAS AND HAD SOME C/O PAIN. WAS GIVEN PAIN MEDICINE. PATIENT IS SLEEPING ROOM AT THIS TIME. BED IN LOW POSITION AND CALL LIGHT WITHIN REACH
[2018-10-12 08:00] VITALS: BP 146/83; PULSE 80; TEMP 97.8
--- NOTE | 2018-10-12 11:14 | NUR ---
PATIENT REPORTS PAIN OF 7/10. 1MG OF DILAUDID GIVEN VIA IV. NO PROBLEMS NOTED. WILL CONTINUE TO MONTIOR
[2018-10-12 12:20] VITALS: BP 129/14; PULSE 87; TEMP 97.8
--- NOTE | 2018-10-12 12:59 | NUR ---
Discharge instructions reviewed with patient, verbalized understanding. Discharged ambulatory to auto/home with friend at 1300.
--- NOTE | 2018-10-12 13:03 | NUR ---
PATIENT AMBULATED IN [facility] FOR 10 MINUTES. PATIENT WAS ORDERED TO BE DISCHARGED. DISCHARGE TEACHING AND INSTRUCTIONS WERE PROVIDED TO PATIENT. PATIENT HAD NO QUESTIONS OR CONCERNS.
== END 2018-10-12 13:00 | disposition home or self-care (01) ==
LOC: COL.ER 04:17 → SURG 06:54
PROVIDERS: Emergency Medicine; ADMIT Surgery
DX: K40.30 Unilateral inguinal hernia, with obstruction, without gangrene, not specified as recurrent (principal); K43.2 Incisional hernia without obstruction or gangrene; E66.01 Morbid (severe) obesity due to excess calories; F32.9 Major depressive disorder, single episode, unspecified; E11.9 Type 2 diabetes mellitus without complications; Z79.84 Long term (current) use of oral hypoglycemic drugs; M10.9 Gout, unspecified; I10 Essential (primary) hypertension
CPT/HCPCS: G0378; J1170; J2405; J2765; J3010; J7030; Q9967

== ENCOUNTER 2019-02-02 02:00 | Emergency (ER) | payer BC ==
[~2019-02-02] VITALS: Ht 188 cm; Wt 209.1 kg
[2019-02-02 02:07] VITALS: TEMP 98.6
[2019-02-02] MEDS ORDERED: ZOFRAN 4MG T4 MG/TAB SL (02:14)
[2019-02-02] MEDS ORDERED: CHANTIX 1MG1 MG PO (02:15)
[2019-02-02 03:20] LABS: BASO % 0.4 % (0.0-2.0); EOS # 0.5 (0.0-0.7); EOS % 4.6 % (0-4.0); GRAN # 7.9 (1.4-6.5); GRAN % 72.7 % (42.2-75.2); HEMATOCRIT 42.2 % (42.0-52.0); LYMPH # 1.8 (1.2-3.4); LYMPH % 16.3 % (20.0-51.0); MEAN CELL VOLUME 82 fl (80.0-100.0); MEAN CORPUSCULAR HEMOGLOBIN 27 pg (27.0-31.0); MEAN CORPUSCULAR HGB CONC 33 g/dl (33.0-37.0); MEAN PLATELET VOLUME 8.9 fl (7.4-10.4); MONO # 0.6 (0.1-0.6); MONO % 5.4 % (1.7-9.3); PLATELET COUNT 294 K/mm3 (130-400); RED BLOOD COUNT 5.15 M/mm3 (4.20-5.60); REDCELL DISTRIBUTION WIDTH-CV 14.2 % (11.5-14.5)
[2019-02-02 04:22] LABS: ALBUMIN 3.7 gm/dL (3.5-5.0); BILIRUBIN,TOTAL 0.5 mg/dL (0.0-1.0); CALCIUM 9.2 mg/dL (8.4-10.2); CREATININE, serum 0.91 (0.66-1.25); POTASSIUM 4.2 mmol/L (3.4-5.0); TOTAL PROTEIN 7.6 gm/dL (6.4-8.2)
[2019-02-02 05:49] LABS: COLLECTION METHOD CLEAN CATCH
[2019-02-02 05:55] LABS: MUCOUS Present /lpf; PH 6 (5-8); SQUAMOUS EPITHELIAL None Seen /hpf; URINE APPEARANCE Clear; URINE BACTERIA None Seen /hpf; URINE BILIRUBIN Negative (NEGATIVE); URINE BLOOD Negative (NEGATIVE); URINE COLOR Yellow; URINE GLUCOSE Negative (NEGATIVE); URINE KETONE Negative (NEGATIVE); URINE LEUKOCYTE ESTERASE Negative (NEGATIVE); URINE NITRATE Negative (NEGATIVE); URINE PROTEIN(semi-quant) Negative (NEGATIVE); URINE RBC None Seen /hpf; URINE UROBILINOGEN Negative (NEGATIVE)
[2019-02-02 08:52] VITALS: BP 129/85
[2019-02-02 10:12] VITALS: PULSE 91
[2019-02-05] MEDS ORDERED: ADIPEX-P37.5 MG PO (18:02)
== END 2019-02-02 10:40 | disposition home or self-care (01) ==
LOC: COL.ER 02:00
PROVIDERS: Emergency Medicine
DX: R10.31 Right lower quadrant pain (principal); E11.9 Type 2 diabetes mellitus without complications; I10 Essential (primary) hypertension; F17.210 Nicotine dependence, cigarettes, uncomplicated; Z90.49 Acquired absence of other specified parts of digestive tract; Z98.890 Other specified postprocedural states; Z87.442 Personal history of urinary calculi; Z79.84 Long term (current) use of oral hypoglycemic drugs
CPT/HCPCS: J1170; J1630; J2405; J2550; J7030; Q9967

== ENCOUNTER → 2019-02-05 | Outpatient (CLI) | payer BC ==
[~2019-02-05] VITALS: Ht 188 cm; Wt 215.5 kg
[~2019-02-05] MED LIST changes: +ADIPEX-P37.5 MG PO; +CHANTIX 1MG1 MG PO; +ZOFRAN 4MG T4 MG/TAB SL
[2019-02-05 15:52] VITALS: BP 110/68; PULSE 80
== END ==
LOC: LIGHT 10:51
DX: F32.9 Major depressive disorder, single episode, unspecified (principal); I10 Essential (primary) hypertension; E16.9 Disorder of pancreatic internal secretion, unspecified; E66.01 Morbid (severe) obesity due to excess calories; Z71.3 Dietary counseling and surveillance
CPT/HCPCS: G0463

== ENCOUNTER 2019-02-18 03:00 | Inpatient (IN) | payer BC ==
[~2019-02-18] VITALS: Ht 188 cm; Wt 210.0 kg
[2019-02-18 03:28] LABS: BASO # 0.1 (0.0-0.2); BASO % 0.5 % (0.0-2.0); EOS # 0.5 (0.0-0.7); EOS % 3.7 % (0-4.0); GRAN # 10.6 (1.4-6.5); GRAN % 74.3 % (42.2-75.2); HEMATOCRIT 47.3 % (42.0-52.0); HEMOGLOBIN 15.7 g/dl (13.5-18.0); LYMPH # 2.3 (1.2-3.4); LYMPH % 15.8 % (20.0-51.0); MEAN CELL VOLUME 83 fl (80.0-100.0); MEAN CORPUSCULAR HEMOGLOBIN 28 pg (27.0-31.0); MEAN CORPUSCULAR HGB CONC 33 g/dl (33.0-37.0); MEAN PLATELET VOLUME 9.8 fl (7.4-10.4); MONO # 0.7 (0.1-0.6); MONO % 5.1 % (1.7-9.3); PLATELET COUNT 293 K/mm3 (130-400); REDCELL DISTRIBUTION WIDTH-CV 14.5 % (11.5-14.5)
[2019-02-18 03:41] LABS: ALBUMIN 4.1 gm/dL (3.5-5.0); BILIRUBIN,TOTAL 0.5 mg/dL (0.0-1.0); C-REACTIVE PROTEIN 2.4 mg/dL (0.0-0.9); CALCIUM 9.5 mg/dL (8.4-10.2); CREATININE, serum 0.64 (0.66-1.25); POTASSIUM 4.6 mmol/L (3.4-5.0); TOTAL PROTEIN 8.5 gm/dL (6.4-8.2)
[2019-02-18 05:03] LABS: COLLECTION METHOD CLEAN CATCH
[2019-02-18 05:28] LABS: MUCOUS Present /lpf; PH 5 (5-8); SQUAMOUS EPITHELIAL 0-2 /hpf; URINE APPEARANCE Clear; URINE BACTERIA None Seen /hpf; URINE BILIRUBIN Negative (NEGATIVE); URINE BLOOD Negative (NEGATIVE); URINE COLOR Yellow; URINE GLUCOSE Negative (NEGATIVE); URINE KETONE Negative (NEGATIVE); URINE LEUKOCYTE ESTERASE Negative (NEGATIVE); URINE NITRATE Negative (NEGATIVE); URINE PROTEIN(semi-quant) Negative (NEGATIVE); URINE RBC 0-2 /hpf; URINE UROBILINOGEN Negative (NEGATIVE)
[2019-02-18 07:55] VITALS: BP 129/92; PULSE 100; TEMP 98.8
--- NOTE | 2019-02-18 08:45 | NUR ---
Received pt to floor, completed admission assessment and med rec. Pt C/O pain to abdomen. Dr. Zhao in room and ordering NG tube. Pt abdomen is obese and rigid. Breathing even and unlabored. Pt diaphoretic, also feeling nauseas.
[2019-02-18] MEDS ORDERED: DAZIDOX10 MG PO (09:16)
--- NOTE | 2019-02-18 09:30 | NUR ---
Attempted to insert NG tube. Yaneth RN tried once in each nostril, hit resistance and pt could not tolerate. Called Lauren CHEN from surgical to attempt. Lauren began inserting nasal tube and pt immediatly requested her to stop and denied an NG tube. Alerted Dr. Zhao. WIll millie to monitor. Call light in reach.
--- NOTE | 2019-02-18 11:59 | NUR ---
PT C/O PAIN ON SCALE 8/10 TO ABDOMEN AND NAUSEA. ADMINISTERED PRN ZOFRAN AND PAIN MEDICATION. DENIES ANY NEEDS AT THIS TIME.
[2019-02-18 12:44] VITALS: BP 145/80; PULSE 93; TEMP 98.8
--- NOTE | 2019-02-18 12:47 | NUR ---
Initial visit; Patient thanked General House Worker for looking in on him and making surd he has a support system. General House Worker wished him well and offered God's blessings.
--- NOTE | 2019-02-18 15:30 | NUR ---
Spoke with Dr. Zhao. Tests are looking better and he feels comfortable advancing to a clear liquid diet. Pt still getting IV Dilaudid every couple of hours.
[2019-02-18 15:53] LABS: BASO % 0.3 % (0.0-2.0); EOS # 0.1 (0.0-0.7); EOS % 1.4 % (0-4.0); GRAN # 7.3 (1.4-6.5); GRAN % 77.6 % (42.2-75.2); HEMATOCRIT 41.3 % (42.0-52.0); LYMPH # 1.4 (1.2-3.4); LYMPH % 14.6 % (20.0-51.0); MEAN CELL VOLUME 85 fl (80.0-100.0); MEAN CORPUSCULAR HEMOGLOBIN 27 pg (27.0-31.0); MEAN CORPUSCULAR HGB CONC 32 g/dl (33.0-37.0); MEAN PLATELET VOLUME 9.3 fl (7.4-10.4); MONO # 0.5 (0.1-0.6); MONO % 5.6 % (1.7-9.3); PLATELET COUNT 228 K/mm3 (130-400); RED BLOOD COUNT 4.88 M/mm3 (4.20-5.60); REDCELL DISTRIBUTION WIDTH-CV 14.8 % (11.5-14.5)
[2019-02-18 15:59] LABS: HEMOGLOBIN 13.1 g/dl (13.5-18.0)
[2019-02-18 16:18] VITALS: BP 127/74; PULSE 86; TEMP 97.7
--- NOTE | 2019-02-18 19:23 | NUR ---
Report given to Linda CHEN.
[2019-02-18 19:50] VITALS: BP 143/71; PULSE 84; TEMP 97.8
--- NOTE | 2019-02-18 20:17 | NUR ---
PT IN BED WITH HOB ELEVATED TO 60 DEGREE ANGLE. PT HAS C/O PAIN IN ABD RATED 7/10 PAIN MEDICATION GIVEN. ALSO, ZOFRAN FOR NAUSEA. CALL LIGHT WITHIN REACH.
[2019-02-19 01:10] VITALS: BP 134/68; PULSE 119; TEMP 97.7
[2019-02-19 01:34] VITALS: BP 115/72; PULSE 81; TEMP 97.8
--- NOTE | 2019-02-19 02:31 | NUR ---
PT HAS BEEN SLEEPING ON AND OFF DURING THIS SHIFT. PT HAS C/O ABDOMINAL PAIN RATED AT A 7/10 GAVE OXYCODONE AND PT ADVISES THAT IT IS HELPING HIM. PT HAS HAD SOME JUICE AND JELLOW THIS NOC. NO FURTHER NEEDS CALL LIGHT WITHIN REACH.
[2019-02-19 04:18] VITALS: BP 126/74; PULSE 83; TEMP 97.8
[2019-02-19 06:15] LABS: BASO % 0.3 % (0.0-2.0); EOS # 0.3 (0.0-0.7); EOS % 4.1 % (0-4.0); GRAN # 5.5 (1.4-6.5); GRAN % 72.3 % (42.2-75.2); HEMATOCRIT 38.7 % (42.0-52.0); LYMPH # 1.3 (1.2-3.4); LYMPH % 17.1 % (20.0-51.0); MEAN CELL VOLUME 86 fl (80.0-100.0); MEAN CORPUSCULAR HEMOGLOBIN 27 pg (27.0-31.0); MEAN CORPUSCULAR HGB CONC 31 g/dl (33.0-37.0); MEAN PLATELET VOLUME 9.7 fl (7.4-10.4); MONO # 0.4 (0.1-0.6); MONO % 5.5 % (1.7-9.3); PLATELET COUNT 214 K/mm3 (130-400); RED BLOOD COUNT 4.51 M/mm3 (4.20-5.60); REDCELL DISTRIBUTION WIDTH-CV 14.6 % (11.5-14.5)
[2019-02-19 06:25] LABS: CREATININE, serum 0.61 (0.66-1.25)
--- NOTE | 2019-02-19 07:20 | NUR ---
Report recieved from GUSTAVO Mckeon. Patient resting in bed. Denies needs at this time. Care assumed.
[2019-02-19 07:45] VITALS: BP 118/71; PULSE 82; TEMP 97.6
--- NOTE | 2019-02-19 07:58 | NUR ---
Dr. Zhao rounds at this time. See associated progress note. No new orders recieved. Care ongoing.
[2019-02-19 11:02] VITALS: BP 130/73; PULSE 88; TEMP 98.3
--- NOTE | 2019-02-19 16:31 | NUR ---
Patient provided DC instructions. Verbalized understanding. INT IV discontinued. Patient ambulates to private vehicle and all belongings are sent with.
== END 2019-02-19 16:46 | disposition home or self-care (01) | DRG 394 ==
LOC: COL.ER 03:00 → MEDICAL 05:23
PROVIDERS: Emergency Medicine; ADMIT Surgery
DX: K43.0 Incisional hernia with obstruction, without gangrene (principal); Z68.43 Body mass index [BMI] 50.0-59.9, adult; E66.01 Morbid (severe) obesity due to excess calories; E11.9 Type 2 diabetes mellitus without complications; I10 Essential (primary) hypertension; M10.9 Gout, unspecified; F32.9 Major depressive disorder, single episode, unspecified; Z87.891 Personal history of nicotine dependence
CPT/HCPCS: J1170; J2270; J2405; J7030; Q9967

== ENCOUNTER → 2019-03-14 | Outpatient (CLI) | payer BC ==
[~2019-03-14] VITALS: Ht 188 cm; Wt 221.8 kg
[2019-03-14 11:51] VITALS: BP 130/50; PULSE 60
== END ==
LOC: LIGHT 03-12 15:11
DX: F32.9 Major depressive disorder, single episode, unspecified (principal); I10 Essential (primary) hypertension; E16.9 Disorder of pancreatic internal secretion, unspecified; E66.01 Morbid (severe) obesity due to excess calories; Z71.3 Dietary counseling and surveillance
CPT/HCPCS: G0463

== ENCOUNTER → 2019-04-09 | Outpatient (CLI) | payer BC ==
[~2019-04-09] VITALS: Ht 188 cm; Wt 218.4 kg
[2019-04-09 14:26] VITALS: BP 160/86; PULSE 88
== END ==
LOC: LIGHT 09:47
DX: F32.9 Major depressive disorder, single episode, unspecified (principal); I10 Essential (primary) hypertension; E16.9 Disorder of pancreatic internal secretion, unspecified; E66.01 Morbid (severe) obesity due to excess calories; Z71.3 Dietary counseling and surveillance
CPT/HCPCS: G0463

== ENCOUNTER → 2019-04-16 | Outpatient (CLI) | payer BC | LOC: BHSO 08:51 | DX: Z76.89 Persons encountering health services in other specified circumstances (principal) ==

== ENCOUNTER → 2019-05-07 | Outpatient (CLI) | payer BC ==
[~2019-05-07] VITALS: Ht 188 cm; Wt 215.9 kg
== END ==
LOC: LIGHT 08:37
DX: F32.9 Major depressive disorder, single episode, unspecified (principal); I10 Essential (primary) hypertension; E16.9 Disorder of pancreatic internal secretion, unspecified; E66.01 Morbid (severe) obesity due to excess calories; Z68.41 Body mass index [BMI] 40.0-44.9, adult; Z71.3 Dietary counseling and surveillance
CPT/HCPCS: G0463

== ENCOUNTER → 2019-05-15 | Outpatient (CLI) | payer BC | LOC: BHSO 12:57 | DX: F33.1 Major depressive disorder, recurrent, moderate (principal) ==

== ENCOUNTER → 2019-05-30 | Outpatient (CLI) | payer BC | LOC: BHSO 13:04 | DX: F33.1 Major depressive disorder, recurrent, moderate (principal) ==

== ENCOUNTER → 2019-06-04 | Outpatient (CLI) | payer BC ==
[~2019-06-04] VITALS: Ht 188 cm; Wt 220.9 kg
[2019-06-04 14:30] VITALS: BP 126/86; PULSE 64
== END ==
LOC: LIGHT 14:03
DX: I10 Essential (primary) hypertension (principal); F32.9 Major depressive disorder, single episode, unspecified; E66.01 Morbid (severe) obesity due to excess calories; Z71.3 Dietary counseling and surveillance
CPT/HCPCS: G0463

== ENCOUNTER → 2019-07-02 | Outpatient (CLI) | payer BC ==
[~2019-07-02] VITALS: Ht 188 cm; Wt 218.6 kg
[2019-07-02 14:51] VITALS: BP 136/90; PULSE 96
== END ==
LOC: LIGHT 13:57
DX: F32.9 Major depressive disorder, single episode, unspecified (principal); I10 Essential (primary) hypertension; E16.9 Disorder of pancreatic internal secretion, unspecified; E66.01 Morbid (severe) obesity due to excess calories; Z68.44 Body mass index [BMI] 60.0-69.9, adult; Z71.3 Dietary counseling and surveillance
CPT/HCPCS: G0463

== ENCOUNTER 2019-08-18 20:58 | Observation (INO) | payer BC ==
[~2019-08-18] VITALS: Ht 188 cm; Wt 217.5 kg
[2019-08-18 21:46] LABS: BASO # 0.1 (0.0-0.2); BASO % 0.4 % (0.0-2.0); EOS # 0.5 (0.0-0.7); EOS % 4.4 % (0-4.0); GRAN # 8.3 (1.4-6.5); HEMATOCRIT 44.9 % (42.0-52.0); HEMOGLOBIN 14.8 g/dl (13.5-18.0); LYMPH # 2.1 (1.2-3.4); LYMPH % 17.6 % (20.0-51.0); MEAN CELL VOLUME 82 fl (80.0-100.0); MEAN CORPUSCULAR HEMOGLOBIN 27 pg (27.0-31.0); MEAN CORPUSCULAR HGB CONC 33 g/dl (33.0-37.0); MEAN PLATELET VOLUME 9.3 fl (7.4-10.4); MONO # 0.7 (0.1-0.6); MONO % 6.1 % (1.7-9.3); PLATELET COUNT 275 K/mm3 (130-400); RED BLOOD COUNT 5.45 M/mm3 (4.20-5.60)
[2019-08-18 21:59] LABS: ALBUMIN 4.3 gm/dL (3.5-5.0); BILIRUBIN,TOTAL 0.3 mg/dL (0.0-1.0); C-REACTIVE PROTEIN 2.6 mg/dL (0.0-0.9); CALCIUM 9.3 mg/dL (8.4-10.2); CREATININE, serum 0.73 (0.66-1.25); POTASSIUM 4.2 mmol/L (3.4-5.0); TOTAL PROTEIN 8.5 gm/dL (6.4-8.2)
[2019-08-18 23:20] LABS: COLLECTION METHOD CLEAN CATCH
[2019-08-18 23:32] LABS: MUCOUS Present /lpf; PH 6 (5-8); SQUAMOUS EPITHELIAL 0-2 /hpf; URINE APPEARANCE Clear; URINE BACTERIA None Seen /hpf; URINE BILIRUBIN Negative (NEGATIVE); URINE BLOOD Negative (NEGATIVE); URINE COLOR Yellow; URINE GLUCOSE Negative (NEGATIVE); URINE KETONE Negative (NEGATIVE); URINE LEUKOCYTE ESTERASE Negative (NEGATIVE); URINE NITRATE Negative (NEGATIVE); URINE PROTEIN(semi-quant) Negative (NEGATIVE); URINE RBC 0-2 /hpf; URINE UROBILINOGEN Negative (NEGATIVE)
[2019-08-19 00:45] VITALS: BP 136/92; PULSE 96; TEMP 97.4
[2019-08-19 03:53] VITALS: BP 118/64; PULSE 95; TEMP 98.3
--- NOTE | 2019-08-19 04:01 | NUR ---
Pt arrived to unit earlier this morning with c/o abdominal pain. Has incarcerated hernia to right side of abdomen, large. Alert and oriented with VSS. Has NS running to IV in LAC. NPO for now. Denies pain at this time but just received dilaudid and zofran. c/o some mild nausea. has not had an episode of emesis for me. is ambulatory in room and to bathroom. here for observation. last bm was yesterday evening. denies chest pain or sob at this time. call light within reach, will continue to monitor
--- NOTE | 2019-08-19 06:07 | NUR ---
pt doing ok. uneventful night during this shift. pain controlled with dilaudid. resting in bed. no issues at this time. call light within reach, will continue to monitor
--- NOTE | 2019-08-19 08:00 | NUR ---
PATIENT IS A&O. VSS. RATES ABD PAIN AT 5-6 AND REQUESTS IV DILAUDID ABOUT EVERY 2 HOURS. BOWL SOUNDS PRESENT X4 QUADS. PATIENT REPORTS HE CAN FEEL THINGS WORKING IN HIS BOWLS. NO BM YET. NO C/O N/V. PATIENT INDEPENDENT IN ROOM. HEAD TO TOE ASSESSMENT COMPLETE.
[2019-08-19 08:27] VITALS: BP 128/79; PULSE 85; TEMP 97.7
[2019-08-19 10:11] LABS: HEMATOCRIT 39.6 % (42.0-52.0); HEMOGLOBIN 12.9 g/dl (13.5-18.0); MEAN CELL VOLUME 85 fl (80.0-100.0); MEAN CORPUSCULAR HEMOGLOBIN 28 pg (27.0-31.0); MEAN CORPUSCULAR HGB CONC 33 g/dl (33.0-37.0); MEAN PLATELET VOLUME 9.4 fl (7.4-10.4); PLATELET COUNT 247 K/mm3 (130-400); RED BLOOD COUNT 4.68 M/mm3 (4.20-5.60); REDCELL DISTRIBUTION WIDTH-CV 14.5 % (11.5-14.5)
[2019-08-19 10:24] LABS: CALCIUM 8.6 mg/dL (8.4-10.2); CREATININE, serum 0.67 (0.66-1.25); POTASSIUM 4.2 mmol/L (3.4-5.0)
--- NOTE | 2019-08-19 11:45 | NUR ---
PATIENT REPORTS HE HAS NOT HAD A BM YET. PATIENT INQUIRING ABOUT EATING. WHEN NURSING ASKS IF HE HAS PASSED GAS, PATIENT REPLIED HE HAS....IF THAT MEANS HE CAN EAT. FURTHER EVALUATION NOTED NO CURRENT GAS, PATIENT NOT INTERESTED IN AMBULATING IN HALLS WHEN ASKED BY NURSING. BOWL SOUNDS PRESENT X4 QUADS. NO C/O N/V. IV FLUIDS INFUSING VIA PUMP INTO LEFT AC. WILL CONTINUE TO MONITOR.
[2019-08-19 12:51] VITALS: BP 139/84; PULSE 78; TEMP 97.7
--- NOTE | 2019-08-19 13:45 | NUR ---
REPORTED OFF TO HARSHILJULIA Somers.
--- NOTE | 2019-08-19 14:00 | NUR ---
ANNAMARIE met with the patient to discuss a discharge plan. The patient lives in [place] with a roommate. The patient does not use DME and reports independence with ADLs. The patient's PCP is Dr. Peguero and patient receives medications with no difficulties. The patient does not have advanced directives in the EMR and was not interested in a DPOA-HC form at this time. The patient plans to return home upon discharge with a friend providing transportation. There are no additional needs at this time.
[2019-08-19 17:03] VITALS: BP 134/79; PULSE 78; TEMP 98.2
[2019-08-19 19:46] VITALS: BP 122/75; PULSE 81; TEMP 97.7
--- NOTE | 2019-08-19 20:05 | NUR ---
Resting in bed. Assessment complete. Lungs clear. Heart sounds normal. Bowels active x4. Pulses strong throughout. No edema noted. INT left AC without complications. Reports 8/10 right ABD pain at hernia site. Hernia large and firm, other areas of ABD soft. Provided with PRN dilaudid at this time. Denies other needs. Tolerating low fiber diet without complications. Call light in reach.
--- NOTE | 2019-08-19 21:30 | NUR ---
IV to INT at this time. Tolerating PO.
[2019-08-20 00:13] VITALS: BP 112/77; PULSE 75; TEMP 97.6
--- NOTE | 2019-08-20 00:13 | NUR ---
Rating ABD pain 8/10. Provided with PRN dilaudid.
[2019-08-20 04:15] VITALS: BP 119/65; PULSE 84; TEMP 98
--- NOTE | 2019-08-20 04:27 | NUR ---
Continues to report 7/10 pain. Provided with PRN dilaudid at this time. Denies other needs. Call light in reach.
--- NOTE | 2019-08-20 06:15 | NUR ---
Patient received x3 doses of dilaudid and x2 doses of oxycodone for pain control throughout night. Pain in ABD, mostly at hernia site. Otherwise uneventful night. Resting in bed this AM. Denied needs.
--- NOTE | 2019-08-20 07:22 | NUR ---
Report given to GUSTAVO Aguilar
[2019-08-20 07:42] VITALS: BP 141/73; PULSE 82; TEMP 98.2
--- NOTE | 2019-08-20 08:19 | NUR ---
Patient alert and oriented, answers questions appropriately. See assessment. Abdomen soft, non tender, non distended. Hernia visible to mid abdomen. Bowel sounds hyperactive x4 quads. +Flatus. C/o generalized abdominal pain. Eats 100% of meal.
[2019-08-20 11:23] VITALS: BP 134/75; PULSE 79; TEMP 97.5
--- NOTE | 2019-08-20 12:26 | NUR ---
Discharge instructions reviewed with patient, verbalized understanding. Discharged ambulatory to auto/home with friend at 1225.
== END 2019-08-20 12:25 | disposition home or self-care (01) ==
LOC: COL.ER 20:58 → SURG 23:39
PROVIDERS: Emergency Medicine; ADMIT Surgery
DX: K43.9 Ventral hernia without obstruction or gangrene (principal); E66.01 Morbid (severe) obesity due to excess calories; Z68.43 Body mass index [BMI] 50.0-59.9, adult; R73.03 Prediabetes; M10.9 Gout, unspecified; I10 Essential (primary) hypertension; Z79.899 Other long term (current) drug therapy; Z87.891 Personal history of nicotine dependence
CPT/HCPCS: J1170; J2405; J7030; Q9967

== ENCOUNTER 2019-10-07 12:24 | Outpatient (RCR) | payer OTHER | END 2020-01-05 | disposition home or self-care (01) | LOC: WSOH | DX: S80.01XA Contusion of right knee, initial encounter (principal); M10.00 Idiopathic gout, unspecified site; M79.674 Pain in right toe(s); M25.532 Pain in left wrist; E66.9 Obesity, unspecified; Z90.49 Acquired absence of other specified parts of digestive tract; Z98.890 Other specified postprocedural states; Z87.891 Personal history of nicotine dependence; I10 Essential (primary) hypertension; K21.9 Gastro-esophageal reflux disease without esophagitis ==

== ENCOUNTER 2019-10-08 05:19 | Observation (INO) | payer BC ==
[~2019-10-08] VITALS: Ht 188 cm; Wt 133.3 kg
[2019-10-08 06:01] LABS: BASO # 0.1 (0.0-0.2); BASO % 0.6 % (0.0-2.0); EOS # 0.6 (0.0-0.7); EOS % 4.8 % (0-4.0); GRAN # 8.8 (1.4-6.5); GRAN % 72.5 % (42.2-75.2); HEMATOCRIT 49.4 % (42.0-52.0); HEMOGLOBIN 16.2 g/dl (13.5-18.0); MEAN CELL VOLUME 83 fl (80.0-100.0); MEAN CORPUSCULAR HEMOGLOBIN 27 pg (27.0-31.0); MEAN CORPUSCULAR HGB CONC 33 g/dl (33.0-37.0); MEAN PLATELET VOLUME 9.4 fl (7.4-10.4); MONO # 0.7 (0.1-0.6); MONO % 5.6 % (1.7-9.3); PLATELET COUNT 405 K/mm3 (130-400); RED BLOOD COUNT 5.96 M/mm3 (4.20-5.60); REDCELL DISTRIBUTION WIDTH-CV 14.3 % (11.5-14.5)
[2019-10-08 06:08] LABS: ALANINE AMINOTRANSFERASE 63 U/L (21-72); ALBUMIN 4.6 gm/dL (3.5-5.0); ALKALINE PHOSPHATASE 136 U/L (50-136); ANION GAP 13 mmol/L (7-16); AST,SGOT 56 U/L (15-37); BILIRUBIN,TOTAL 0.6 mg/dL (0.0-1.0); BLOOD UREA NITROGEN 16 mg/dL (9-20); CALCIUM 10.1 mg/dL (8.4-10.2); CARBON DIOXIDE 28 mmol/L (22-30); CHLORIDE 100 mmol/L (98-107); CREATININE, serum 0.85 (0.66-1.25); GLUCOSE 157 mg/dL (74-106); LIPASE 51 U/L (23-300); POTASSIUM 4.3 mmol/L (3.4-5.0); SODIUM 140 mmol/L (137-145); TOTAL PROTEIN 8.9 gm/dL (6.4-8.2)
[2019-10-08 06:24] LABS: TROPONIN-I < 0.012 ng/mL (0.000-0.035)
--- NOTE | 2019-10-08 11:15 | NUR ---
arrived on unit per WC and assisted into bed, requesting something for pain
[2019-10-08 11:27] VITALS: BP 113/64; PULSE 95; TEMP 98
--- NOTE | 2019-10-08 11:45 | NUR ---
medicated with dilaudid 0.25mg slow IV, he's watching TV
--- NOTE | 2019-10-08 13:30 | NUR ---
remains in bed watching TV, admission assessment completed, requesting pain meds, explained it is a little early and will bring when time appropriate, also request nausea medicine with the pain medicine
--- NOTE | 2019-10-08 14:11 | NUR ---
Dr Dupree here and in to see patient
--- NOTE | 2019-10-08 14:47 | NUR ---
remains resting in bed watching TV, denies needs
--- NOTE | 2019-10-08 16:14 | NUR ---
c/o pain 02/04 and medicated with dilaudid 0.25mg slow IV
[2019-10-08 16:49] VITALS: BP 127/78; PULSE 90; TEMP 98.1
--- NOTE | 2019-10-08 18:20 | NUR ---
c/o pain and medicated with dilaudid 0.25mg slow IV
--- NOTE | 2019-10-08 18:45 | NUR ---
bedside shift report given to GUSTAVO Cortez
[2019-10-08 20:39] VITALS: BP 123/81; PULSE 85; TEMP 97.5
[2019-10-09 00:42] VITALS: BP 138/88; PULSE 86; TEMP 97.5
[2019-10-09 04:36] VITALS: BP 142/87; PULSE 81; TEMP 98.1
--- NOTE | 2019-10-09 05:32 | NUR ---
Patient has rested well throughout the night. Dilaudid PRN given for pain. IVF continue to LAC. Independent with transfers and ambulation to the bathroom. Patient rates pain 6-7/10 to RLQ in abdomen. Dilaudid effective for pain. Bowel sounds hypoactive. Will continue to monitor.
[2019-10-09 07:00] LABS: BASO # 0.1 (0.0-0.2); BASO % 0.6 % (0.0-2.0); EOS # 0.4 (0.0-0.7); EOS % 5.4 % (0-4.0); GRAN # 5.3 (1.4-6.5); GRAN % 66.6 % (42.2-75.2); HEMATOCRIT 42.1 % (42.0-52.0); LYMPH # 1.6 (1.2-3.4); LYMPH % 20.7 % (20.0-51.0); MEAN CELL VOLUME 85 fl (80.0-100.0); MEAN CORPUSCULAR HGB CONC 32 g/dl (33.0-37.0); MEAN PLATELET VOLUME 9.2 fl (7.4-10.4); MONO # 0.5 (0.1-0.6); MONO % 6.2 % (1.7-9.3); RED BLOOD COUNT 4.95 M/mm3 (4.20-5.60); REDCELL DISTRIBUTION WIDTH-CV 14.4 % (11.5-14.5)
[2019-10-09 07:16] LABS: HEMOGLOBIN 13.3 g/dl (13.5-18.0); MEAN CORPUSCULAR HEMOGLOBIN 27 pg (27.0-31.0); PLATELET COUNT 282 K/mm3 (130-400)
[2019-10-09 07:20] VITALS: BP 130/86; PULSE 84; TEMP 97.4
--- NOTE | 2019-10-09 09:45 | NUR ---
SW met with the patient to discuss discharge plan. The patient lives in [place] with a roommate. He reports independence with ADLs and does not have any DME. The patient's PCP is Dr. Jermaine Peguero and he receives his medications at [facility]. He reports no difficulties obtaining his meds. The patient does not have advanced directives and he was not interested in completing them at this time. He states that his next of kin and emergency contact is his father, Neftaly De Paz (ph#[phone]). He states that his father lives in [place]. The patient plans to return home with his roommate upon discharge. No additional needs at this time.
--- NOTE | 2019-10-09 11:00 | NUR ---
Patient tolerated solid foods well without nausea or increased pain. He had a bowel movement. He has been independent in the room. Patient is hoping to discharge this afternoon. Patient had questions about why we are checking his glucose since he only take metformin. Explained that since he can not take the metformin we need to make sure his blood sugars are stable. No other changes at this time. Call light within reach.
[2019-10-09 11:25] VITALS: BP 119/76; PULSE 81; TEMP 97.5
--- NOTE | 2019-10-09 12:50 | NUR ---
Initial visit; Patient thanked Ui Engineer for looking in on him and offerin God's blessings.
--- NOTE | 2019-10-09 13:45 | NUR ---
Patient is discharging home. Discharge instructions discussed with patient. No questions verbalized. INT discontinued. Patient packed up his belongings. Explained to follow up as needed with Dr Dupree. Copies of discharge instructions sent with patient. Patient walked out with Braulio CHISHOLM.
== END 2019-10-09 13:50 | disposition home or self-care (01) ==
LOC: COL.ER 05:19 → SURG 08:40
PROVIDERS: Emergency Medicine; ADMIT Surgery
DX: R10.9 Unspecified abdominal pain (principal); R11.2 Nausea with vomiting, unspecified; E66.9 Obesity, unspecified; I10 Essential (primary) hypertension; K21.9 Gastro-esophageal reflux disease without esophagitis; M10.9 Gout, unspecified; E11.9 Type 2 diabetes mellitus without complications; Z79.84 Long term (current) use of oral hypoglycemic drugs; Z79.899 Other long term (current) drug therapy; Z79.891 Long term (current) use of opiate analgesic; Z90.49 Acquired absence of other specified parts of digestive tract; Z87.891 Personal history of nicotine dependence; Z82.49 Family history of ischemic heart disease and other diseases of the circulatory system; Z83.3 Family history of diabetes mellitus
CPT/HCPCS: G0378; J1170; J2270; J2405; J2765; J7030; J7120; Q9967

== ENCOUNTER 2019-10-25 07:30 | Day surgery (SDC) | payer BC ==
[~2019-10-25] VITALS: Ht 188 cm; Wt 218.5 kg
[2019-10-25 08:19] VITALS: BP 134/90; PULSE 110; TEMP 97.9
[2019-10-25 08:55] VITALS: BP 124/78; PULSE 108; TEMP 97.7
--- NOTE | 2019-10-25 08:55 | NUR ---
Pt returned via cart to [facility]. A&O. Ambulated with SBA to recliner in [place]. VSS-see flowsheet. Call light in reach. Given grape juice and a muffin per request.
[2019-10-25 09:10] VITALS: BP 120/78; PULSE 107
[2019-10-25 09:25] VITALS: BP 127/84; PULSE 107
[2019-10-25 09:40] VITALS: BP 126/70; PULSE 108
--- NOTE | 2019-10-25 09:44 | NUR ---
Pt tolerated juice and a muffin. VS remain stable-see flowsheet. IV removed, pressure dressing applied. Discharge teaching completed, verbalized understanding. Taken via wheelchair to private vehicle for dc home with friend, Ale, driving.
[2019-10-25 11:16] VITALS: BP 124/78; PULSE 108
== END 2019-10-25 09:44 | disposition home or self-care (01) ==
LOC: SDCO 07:30
DX: K21.9 Gastro-esophageal reflux disease without esophagitis (principal); E66.9 Obesity, unspecified; M10.9 Gout, unspecified; I10 Essential (primary) hypertension; K44.9 Diaphragmatic hernia without obstruction or gangrene; M19.90 Unspecified osteoarthritis, unspecified site; F41.9 Anxiety disorder, unspecified; F32.9 Major depressive disorder, single episode, unspecified; G47.33 Obstructive sleep apnea (adult) (pediatric); Z79.84 Long term (current) use of oral hypoglycemic drugs; Z79.52 Long term (current) use of systemic steroids; Z90.49 Acquired absence of other specified parts of digestive tract; Z87.891 Personal history of nicotine dependence
CPT/HCPCS: J2704; J7030

== ENCOUNTER 2020-02-05 14:43 | Outpatient (RCR) | payer OTHER ==
[2020-02-20] MEDS ORDERED: PERCOCET 325 MG1 TAB PO ×3 (14:52→15:54)
== END 2020-05-05 | disposition home or self-care (01) ==
LOC: WSOH
DX: S39.012A Strain of muscle, fascia and tendon of lower back, initial encounter (principal); Z98.890 Other specified postprocedural states; Z90.49 Acquired absence of other specified parts of digestive tract; Z87.891 Personal history of nicotine dependence; I10 Essential (primary) hypertension; F32.9 Major depressive disorder, single episode, unspecified; K21.9 Gastro-esophageal reflux disease without esophagitis; M54.9 Dorsalgia, unspecified; G89.29 Other chronic pain; M10.9 Gout, unspecified; Y99.0 Civilian activity done for income or pay

== ENCOUNTER 2020-02-20 11:35 | Emergency (ER) | payer BC ==
[~2020-02-20] VITALS: Ht 188 cm; Wt 218.2 kg
[2020-02-20 11:49] VITALS: TEMP 97.7
[2020-02-20 12:24] LABS: COLLECTION METHOD CLEAN CATCH
[2020-02-20 12:27] LABS: BASO # 0.1 (0.0-0.2); BASO % 0.7 % (0.0-2.0); EOS # 0.6 (0.0-0.7); EOS % 6.1 % (0-4.0); GRAN # 6.2 (1.4-6.5); GRAN % 68.7 % (42.2-75.2); HEMATOCRIT 46.7 % (42.0-52.0); LYMPH # 1.7 (1.2-3.4); LYMPH % 18.8 % (20.0-51.0); MEAN CELL VOLUME 84 fl (80.0-100.0); MEAN CORPUSCULAR HEMOGLOBIN 27 pg (27.0-31.0); MEAN CORPUSCULAR HGB CONC 32 g/dl (33.0-37.0); MEAN PLATELET VOLUME 9.4 fl (7.4-10.4); MONO # 0.5 (0.1-0.6); MONO % 5.3 % (1.7-9.3); PLATELET COUNT 327 K/mm3 (130-400); RED BLOOD COUNT 5.53 M/mm3 (4.20-5.60); REDCELL DISTRIBUTION WIDTH-CV 13.5 % (11.5-14.5)
[2020-02-20 12:32] LABS: MUCOUS Present /lpf; PH 7 (5-8); SQUAMOUS EPITHELIAL None Seen /hpf; URINE APPEARANCE Clear; URINE BACTERIA None Seen /hpf; URINE BILIRUBIN Negative (NEGATIVE); URINE BLOOD Negative (NEGATIVE); URINE COLOR Yellow; URINE GLUCOSE Negative (NEGATIVE); URINE KETONE Negative (NEGATIVE); URINE LEUKOCYTE ESTERASE Negative (NEGATIVE); URINE NITRATE Negative (NEGATIVE); URINE PROTEIN(semi-quant) Negative (NEGATIVE); URINE RBC 0-2 /hpf; URINE UROBILINOGEN Negative (NEGATIVE)
[2020-02-20 12:48] LABS: ALBUMIN 4.2 gm/dL (3.5-5.0); BILIRUBIN,TOTAL 0.7 mg/dL (0.0-1.0); C-REACTIVE PROTEIN 2.5 mg/dL (0.0-0.9); CALCIUM 9.4 mg/dL (8.4-10.2); CREATININE, serum 0.69 (0.66-1.25); POTASSIUM 4.3 mmol/L (3.4-5.0); TOTAL PROTEIN 8.6 gm/dL (6.4-8.2)
[2020-02-20] MEDS ORDERED: PERCOCET 325 MG1 TAB PO ×3 (14:52→15:54)
[2020-02-20 15:39] VITALS: BP 129/97; PULSE 106
== END 2020-02-20 15:39 | disposition home or self-care (01) ==
LOC: COL.ER 11:35
PROVIDERS: Physician Assistant
DX: K43.9 Ventral hernia without obstruction or gangrene (principal); I10 Essential (primary) hypertension; K21.9 Gastro-esophageal reflux disease without esophagitis; E66.9 Obesity, unspecified; M10.9 Gout, unspecified; F17.210 Nicotine dependence, cigarettes, uncomplicated; Z87.442 Personal history of urinary calculi; Z90.49 Acquired absence of other specified parts of digestive tract; Z68.44 Body mass index [BMI] 60.0-69.9, adult
CPT/HCPCS: J1170; J2270; J2405; J7030; Q9967

== ENCOUNTER 2020-03-21 19:39 | Emergency (ER) | payer BC ==
[~2020-03-21] VITALS: Ht 188 cm; Wt 218.2 kg
[2020-03-21 19:54] VITALS: TEMP 97.6
[2020-03-21 21:11] LABS: BASO % 0.4 % (0.0-2.0); EOS # 0.6 (0.0-0.7); EOS % 5.2 % (0-4.0); GRAN # 7.5 (1.4-6.5); GRAN % 70.1 % (42.2-75.2); HEMATOCRIT 43.3 % (42.0-52.0); LYMPH # 1.9 (1.2-3.4); MEAN CELL VOLUME 84 fl (80.0-100.0); MEAN CORPUSCULAR HEMOGLOBIN 27 pg (27.0-31.0); MEAN CORPUSCULAR HGB CONC 32 g/dl (33.0-37.0); MEAN PLATELET VOLUME 9.6 fl (7.4-10.4); MONO # 0.6 (0.1-0.6); MONO % 5.8 % (1.7-9.3); PLATELET COUNT 280 K/mm3 (130-400); RED BLOOD COUNT 5.16 M/mm3 (4.20-5.60); REDCELL DISTRIBUTION WIDTH-CV 13.8 % (11.5-14.5)
[2020-03-21 21:18] LABS: BILIRUBIN,TOTAL 0.5 mg/dL (0.0-1.0); CREATININE, serum 0.7 (0.66-1.25); POTASSIUM 3.9 mmol/L (3.4-5.0)
[2020-03-21 23:51] VITALS: BP 168/95; PULSE 94
== END 2020-03-21 23:51 | disposition home or self-care (01) ==
LOC: COL.ER 19:39
PROVIDERS: Physician Assistant
DX: K43.9 Ventral hernia without obstruction or gangrene (principal); I10 Essential (primary) hypertension; Z87.891 Personal history of nicotine dependence; Z90.49 Acquired absence of other specified parts of digestive tract; Z79.84 Long term (current) use of oral hypoglycemic drugs
CPT/HCPCS: J1170; J3010; J7030

== ENCOUNTER 2020-06-05 09:15 | Emergency (ER) | payer BC ==
[~2020-06-05] VITALS: Ht 188 cm; Wt 204.5 kg
[2020-06-05 09:30] VITALS: TEMP 98.3
[2020-06-05 10:26] LABS: BASO % 0.6 % (0.0-2.0); EOS # 0.4 (0.0-0.7); GRAN # 4.9 (1.4-6.5); GRAN % 67.6 % (42.2-75.2); HEMATOCRIT 46.7 % (42.0-52.0); HEMOGLOBIN 15.5 g/dl (13.5-18.0); LYMPH # 1.5 (1.2-3.4); MEAN CELL VOLUME 83 fl (80.0-100.0); MEAN CORPUSCULAR HEMOGLOBIN 28 pg (27.0-31.0); MEAN CORPUSCULAR HGB CONC 33 g/dl (33.0-37.0); MEAN PLATELET VOLUME 9.7 fl (7.4-10.4); MONO # 0.4 (0.1-0.6); MONO % 5.7 % (1.7-9.3); PLATELET COUNT 282 K/mm3 (130-400); RED BLOOD COUNT 5.63 M/mm3 (4.20-5.60); REDCELL DISTRIBUTION WIDTH-CV 14.1 % (11.5-14.5)
[2020-06-05 11:07] LABS: ALBUMIN 4.5 gm/dL (3.5-5.0); BILIRUBIN,TOTAL 0.7 mg/dL (0.0-1.0); C-REACTIVE PROTEIN 2.3 mg/dL (0.0-0.9); CALCIUM 9.4 mg/dL (8.4-10.2); CREATININE, serum 0.68 (0.66-1.25); POTASSIUM 4.1 mmol/L (3.4-5.0); TOTAL PROTEIN 8.5 gm/dL (6.4-8.2)
[2020-06-05 13:05] LABS: COLLECTION METHOD CLEAN CATCH
[2020-06-05 13:18] LABS: MUCOUS Present /lpf; PH 5 (5-8); SQUAMOUS EPITHELIAL 0-2 /hpf; URINE APPEARANCE Hazy; URINE BACTERIA None Seen /hpf; URINE BILIRUBIN Negative (NEGATIVE); URINE BLOOD Negative (NEGATIVE); URINE COLOR Yellow; URINE GLUCOSE Negative (NEGATIVE); URINE KETONE Negative (NEGATIVE); URINE LEUKOCYTE ESTERASE Negative (NEGATIVE); URINE NITRATE Negative (NEGATIVE); URINE PROTEIN(semi-quant) Negative (NEGATIVE); URINE RBC 0-2 /hpf; URINE UROBILINOGEN Negative (NEGATIVE)
[2020-06-05 13:30] VITALS: BP 125/86; PULSE 76
== END 2020-06-05 13:48 | disposition home or self-care (01) ==
LOC: COL.ER 09:15
PROVIDERS: Emergency Medicine
DX: N20.1 Calculus of ureter (principal); I10 Essential (primary) hypertension; E66.9 Obesity, unspecified; Z68.43 Body mass index [BMI] 50.0-59.9, adult; Z87.442 Personal history of urinary calculi; Z90.49 Acquired absence of other specified parts of digestive tract; Z98.84 Bariatric surgery status; Z87.891 Personal history of nicotine dependence; Z79.84 Long term (current) use of oral hypoglycemic drugs
CPT/HCPCS: J3010; J7030

== ENCOUNTER → 2020-06-19 | Outpatient (CLI) | payer BC | LOC: ZCOL.LAB 19:20 | DX: L02.213 Cutaneous abscess of chest wall (principal) ==

== ENCOUNTER → 2020-06-19 | Outpatient (CLI) | payer BC | LOC: ZCOL.LAB 19:17 | DX: L02.213 Cutaneous abscess of chest wall (principal) ==

== ENCOUNTER → 2020-09-16 | Outpatient (CLI) | payer BC | LOC: MHCPAIN 13:55 | DX: M47.817 Spondylosis without myelopathy or radiculopathy, lumbosacral region (principal); M54.5 Low back pain; E66.01 Morbid (severe) obesity due to excess calories | CPT/HCPCS: G0463 ==

== ENCOUNTER 2021-01-20 08:40 | Emergency (ER) | payer BC ==
[~2021-01-20] VITALS: Ht 188 cm; Wt 163.6 kg
[2021-01-20 08:54] VITALS: TEMP 97.9
[2021-01-20 09:36] LABS: BASO # 0.1 (0.0-0.2); BASO % 0.7 % (0.0-2.0); EOS # 0.4 (0.0-0.7); EOS % 5.1 % (0-4.0); GRAN # 6.1 (1.4-6.5); GRAN % 70.4 % (42.2-75.2); HEMATOCRIT 46.8 % (42.0-52.0); HEMOGLOBIN 15.5 g/dl (13.5-18.0); LYMPH # 1.6 (1.2-3.4); LYMPH % 17.8 % (20.0-51.0); MEAN CELL VOLUME 81 fl (80.0-100.0); MEAN CORPUSCULAR HEMOGLOBIN 27 pg (27.0-31.0); MEAN CORPUSCULAR HGB CONC 33 g/dl (33.0-37.0); MEAN PLATELET VOLUME 9.2 fl (7.4-10.4); MONO # 0.5 (0.1-0.6); MONO % 5.7 % (1.7-9.3); PLATELET COUNT 294 K/mm3 (130-400); RED BLOOD COUNT 5.77 M/mm3 (4.20-5.60); REDCELL DISTRIBUTION WIDTH-CV 14.2 % (11.5-14.5)
[2021-01-20 09:48] LABS: BILIRUBIN,TOTAL 0.7 mg/dL (0.0-1.0); CALCIUM 9.1 mg/dL (8.4-10.2); CREATININE, serum 0.53 (0.66-1.25); POTASSIUM 4.4 mmol/L (3.4-5.0)
[2021-01-20] MEDS ORDERED: NORCO 325 MG-51 TAB PO (12:12)
[2021-01-20 12:29] VITALS: BP 130/95; PULSE 72
== END 2021-01-20 12:28 | disposition home or self-care (01) ==
LOC: COL.ER 08:40
PROVIDERS: Emergency Medicine
DX: K43.9 Ventral hernia without obstruction or gangrene (principal); E66.01 Morbid (severe) obesity due to excess calories; I10 Essential (primary) hypertension; K21.9 Gastro-esophageal reflux disease without esophagitis; M10.9 Gout, unspecified; Z87.442 Personal history of urinary calculi; Z90.49 Acquired absence of other specified parts of digestive tract; Z79.899 Other long term (current) drug therapy; Z68.42 Body mass index [BMI] 45.0-49.9, adult; Z98.84 Bariatric surgery status
CPT/HCPCS: J1885; J2405; J3010; Q9967

== ENCOUNTER 2021-08-17 02:23 | Inpatient (IN) | payer BC ==
[2021-08-17] VITALS (14 sets, daily range): BP systolic 125–183; BP diastolic 62–115; PULSE 88–99; TEMP 97.6–98
[~2021-08-17] VITALS: Ht 188 cm; Wt 184.6 kg
[2021-08-17 02:58] LABS: BASO # 0.1 K/mm3 (0.0-0.2); BASO % 0.7 % (0.0-2.0); EOS # 0.6 K/mm3 (0.0-0.7); EOS % 6.9 % (0.0-4.0); GRAN # 5.3 K/mm3 (1.4-6.5); GRAN % 63.7 % (42.2-75.2); HEMATOCRIT 43.3 % (42.0-52.0); HEMOGLOBIN 14.7 g/dl (13.5-18.0); LYMPH # 1.8 K/mm3 (1.2-3.4); MEAN CELL VOLUME 86 fl (80.0-100.0); MEAN CORPUSCULAR HEMOGLOBIN 29 pg (27-31); MEAN CORPUSCULAR HGB CONC 34 g/dl (33.0-37.0); MEAN PLATELET VOLUME 9.8 fl (7.4-10.4); MONO # 0.5 K/mm3 (0.1-0.6); MONO % 6.3 % (1.7-9.3); PLATELET COUNT 233 K/mm3 (130-400); RED BLOOD COUNT 5.02 M/mm3 (4.20-5.60); REDCELL DISTRIBUTION WIDTH-CV 13.3 % (11.5-14.5)
[2021-08-17 03:17] LABS: ALBUMIN 3.3 gm/dL (3.5-5.0); BILIRUBIN,TOTAL 0.4 mg/dL (0.2-1.2); CALCIUM 8.6 mg/dL (8.4-10.2); CREATININE, serum 0.86 mg/dL (0.72-1.25); POTASSIUM 3.7 mmol/L (3.5-4.5); TOTAL PROTEIN 6.9 gm/dL (6.2-8.1)
[2021-08-17 03:40] LABS: TROPONIN-I 0.038 ng/mL (0.00-0.033)
[2021-08-17 07:25] LABS: INR 1.1 (0.8-3.0); PROTHROMBIN TIME 12.3 SECONDS (9.7-12.8)
[2021-08-17] MEDS ORDERED: LOPRESSOR 550 MG/TAB PO (08:14)
[2021-08-17] MEDS ORDERED: TYLENOL W/COD1 UDTAB PO (08:16)
[2021-08-17] MEDS ORDERED: AMOXICILLIN 50500 MG PO (08:16)
[2021-08-17] MEDS ORDERED: IMODIUM 2MG CAPS2 MG PO (08:16)
--- NOTE | 2021-08-17 10:00 | NUR ---
arrived on unit per cart from ED, assisted up and into bed, heparin drip infusing at 10ml/hr, instructed on use of call light and verbalizes understanding
--- NOTE | 2021-08-17 10:40 | NUR ---
resting in bed, c/o terrible tooth pain from where had tooth extracted last Monday 08/13, Dr Mondragon notified and in to see patient,
--- NOTE | 2021-08-17 10:55 | NUR ---
medicated with hydrocodone 5mg po for c/os tooth pain
--- NOTE | 2021-08-17 11:10 | NUR ---
vascular medical lab scientist in and completing echo, unable to do vital signs
--- NOTE | 2021-08-17 11:53 | NUR ---
up to bathroom and then back to bed, carpenter/labor nurse here and patient transported per bed to carpenter/labor
--- NOTE | 2021-08-17 12:09 | NUR ---
SEE MERGE DOCUMENTATION FOR MEDICATION ADMINISTRATION TIMES AND INTRA/POST PROCEDURE SEDATION ASSESSMENTS.
--- NOTE | 2021-08-17 13:00 | NUR ---
returned to room per bed from wetlands conservation laborer, alert and oriented but sleepy, O2 sat on room air 88%, placed on O2 at 1L/NC, O2 sat remained in high 80s on 1L and O2 up to 2L/NC
--- NOTE | 2021-08-17 13:15 | NUR ---
O2 sat 93% on 2L, continues to doze between checks, given sips of water
--- NOTE | 2021-08-17 13:30 | NUR ---
resting in bed, blankets removed and heat turned down in room, had water and tolerated well and is asking for something to eat, instructed on ordering food and verbalizes understanding
--- NOTE | 2021-08-17 13:46 | NUR ---
GUSTAVO Sotelo with Dr Antonia mukherjee
--- NOTE | 2021-08-17 14:15 | NUR ---
sitting up eating lunch, will recheck BP after he is done eating
--- NOTE | 2021-08-17 14:45 | NUR ---
had lunch and tolerated well, is again c/o tooth pain and requesting pain med, medicated with hydrocodone 5mg 1 tab, also provided warm salt water per his request as he did this immediately after the tooth was extracted and it helped
--- NOTE | 2021-08-17 15:15 | NUR ---
c/o arm board being tight on his arm, 2ml air removed from band and board loosened
--- NOTE | 2021-08-17 16:06 | NUR ---
2ML air removed from band
--- NOTE | 2021-08-17 16:45 | NUR ---
is sleeping when entered th room, awakens easily, friend here with some supplies for him, states tooth pain is better, goes back to sleep quickly
--- NOTE | 2021-08-17 17:45 | NUR ---
all air removed from band, band removed and bandaid placed
--- NOTE | 2021-08-17 18:00 | NUR ---
radial band removed, no bleeding noted and site is soft, bandaid over site, assisted up to bathroom and voided qs, then back to bed
--- NOTE | 2021-08-17 19:11 | NUR ---
bedside shift report given to GUSTAVO Hilliard
[2021-08-18] VITALS (11 sets, daily range): BP systolic 117–161; BP diastolic 85–112; PULSE 80–89; TEMP 97.4–98.2
--- NOTE | 2021-08-18 00:15 | NUR ---
Patient alert and oriented. Patient denies chest pain, SOB, headache, or N/V. Right radial heart cath site covered with band-aid. Site C/D/I. Skin soft and no hematoma noted to right radial site. Patient tolerating PO intake. All scheduled meds given per OCT. Call light in reach. Will continue to monitor.
--- NOTE | 2021-08-18 04:01 | NUR ---
Patient awake around 3 am. Patient had some non-productive cough. Patient reports having some chest pressure with coughing. Patient requesting pain med at this time. PRN pain med given per patient request. Call light in reach. Will continue to monitor.
[2021-08-18 09:38] LABS: BASO # 0.1 K/mm3 (0.0-0.2); BASO % 0.9 % (0.0-2.0); EOS # 0.6 K/mm3 (0.0-0.7); EOS % 8.4 % (0.0-4.0); GRAN # 4.6 K/mm3 (1.4-6.5); GRAN % 64.6 % (42.2-75.2); HEMATOCRIT 43.4 % (42.0-52.0); HEMOGLOBIN 14.3 g/dl (13.5-18.0); LYMPH # 1.3 K/mm3 (1.2-3.4); LYMPH % 18.6 % (20.0-51.0); MEAN CELL VOLUME 89 fl (80.0-100.0); MEAN CORPUSCULAR HEMOGLOBIN 29 pg (27-31); MEAN CORPUSCULAR HGB CONC 33 g/dl (33.0-37.0); MEAN PLATELET VOLUME 9.8 fl (7.4-10.4); MONO # 0.5 K/mm3 (0.1-0.6); MONO % 7.2 % (1.7-9.3); PLATELET COUNT 218 K/mm3 (130-400); RED BLOOD COUNT 4.89 M/mm3 (4.20-5.60); REDCELL DISTRIBUTION WIDTH-CV 13.5 % (11.5-14.5)
--- NOTE | 2021-08-18 09:46 | NUR ---
Pt assessment complete. Pt is laying in bed upon entry, he is A/O x4. His breathing is even and unlabored on RA. Pt denies SOB. Denies any pain. Ate breakfast without issues. POC discussed with patient who verbalizes understanding. No needs at this time. Call light within reach.
[2021-08-18 09:55] LABS: CALCIUM 8.6 mg/dL (8.4-10.2); CREATININE, serum 0.82 mg/dL (0.72-1.25); POTASSIUM 4.4 mmol/L (3.5-4.5)
[2021-08-18 10:01] LABS: TROPONIN-I 0.024 ng/mL (0.00-0.033)
--- NOTE | 2021-08-18 10:51 | NUR ---
Edwige met with the pt who stated his preference to return home once medically stable. The pt lives at home. The pt NK is Neftaly, father, . The pt states he does not have a DPOA-HC and is not interested in one at this time. The pt states he is independent on all ADLs and still drives. The pt states that he uses BIPAP/CPAP. The pt PCP Jermaine Peguero and gets his medications from [facility]. The pt has never use HH services before. No other needs stated at this time. Sw to await further recommendations and follow up as needed. D/c: Home.
--- NOTE | 2021-08-18 14:57 | NUR ---
First visit from the hse coordinator. No needs right now.
--- NOTE | 2021-08-18 22:33 | NUR ---
Patient sitting up in bed upon enter the room. Patient A/Ox4. Patient denies chest pain/pressure or SOB at this time. Patient states he had tooth extraction last Monday and since then it hurts. Right upper tooth extraction site slightly red and swollen. Patient states he is planning to see dentist after get discharge. PRN [place] given for tooth pain around 10 pm. All scheduled meds given per OCT. Call light in reach. Will continue to monitor.
[2021-08-19 03:20] VITALS: BP 131/77; PULSE 81; TEMP 97.6
[2021-08-19 06:42] LABS: BASO # 0.1 K/mm3 (0.0-0.2); BASO % 0.7 % (0.0-2.0); EOS # 0.6 K/mm3 (0.0-0.7); EOS % 7.4 % (0.0-4.0); GRAN # 5.3 K/mm3 (1.4-6.5); GRAN % 64.8 % (42.2-75.2); HEMOGLOBIN 14.6 g/dl (13.5-18.0); LYMPH # 1.7 K/mm3 (1.2-3.4); LYMPH % 20.6 % (20.0-51.0); MEAN CELL VOLUME 87 fl (80.0-100.0); MEAN CORPUSCULAR HEMOGLOBIN 30 pg (27-31); MEAN CORPUSCULAR HGB CONC 34 g/dl (33.0-37.0); MEAN PLATELET VOLUME 9.7 fl (7.4-10.4); MONO # 0.5 K/mm3 (0.1-0.6); MONO % 6.3 % (1.7-9.3); PLATELET COUNT 202 K/mm3 (130-400); RED BLOOD COUNT 4.94 M/mm3 (4.20-5.60); REDCELL DISTRIBUTION WIDTH-CV 13.2 % (11.5-14.5)
[2021-08-19 06:48] LABS: CALCIUM 8.6 mg/dL (8.4-10.2); CREATININE, serum 0.73 mg/dL (0.72-1.25); POTASSIUM 3.8 mmol/L (3.5-4.5)
--- NOTE | 2021-08-19 07:28 | NUR ---
PT IS SLEEPING IN BED AT THIS TIME. WILL RETURN FOR MORNING MEDICATIONS AND ASSESSMENT.
[2021-08-19 07:42] VITALS: BP 143/102; PULSE 82; TEMP 98.3
--- NOTE | 2021-08-19 09:37 | NUR ---
Initial viist; Patient thanked for offering Celine Dickerson and God's blessings.
[2021-08-19] MEDS ORDERED: NITROSTAT0.4 MG/TAB SL ×2 (11:10→11:21)
[2021-08-19] MEDS ORDERED: LIPITOR 80MG80 MG PO (11:10)
[2021-08-19] MEDS ORDERED: ASPIRIN E.C. 8181 MG PO (11:11)
[2021-08-19] MEDS ORDERED: LOPRESSOR 550 MG/TAB PO (11:11)
[2021-08-19] MEDS ORDERED: COZAAR 25MG25 MG/TAB PO (11:11)
[2021-08-19] MEDS ORDERED: LASIX 40MG TABL40 MG PO (11:13)
[2021-08-19 11:51] VITALS: BP 136/86; PULSE 80; TEMP 98.2
--- NOTE | 2021-08-19 14:30 | NUR ---
THIS PATIENT UNDERSTOOD DISCHARGE INFORMATION; ACKNOWLEDGED THE TEACHING, AND HAS SIGNED HIS DISCHARGE PAPERWORK. THE PATIENT WALKED OUT OF THE HOSPITAL WITHOUT ISSUE. IV REMOVED, AND PATIENT HAS DISCHARGED.
== END 2021-08-19 14:20 | disposition home or self-care (01) | DRG 286 ==
LOC: COL.ER 02:23 → MEDICAL 06:14
PROVIDERS: Internal Medicine Adult Congenital Heart Disease; Personal Emergency Response Attendant; Physician Assistant; ADMIT Internal Medicine
PROC: 4A023N7 Measurement of Cardiac Sampling and Pressure, Left Heart, Percutaneous Approach (ICD-10-PCS; principal; 2021-08-17)
PROC: B2111ZZ Fluoroscopy of Multiple Coronary Arteries using Low Osmolar Contrast (ICD-10-PCS; 2021-08-17)
DX: I25.10 Atherosclerotic heart disease of native coronary artery without angina pectoris (principal); I50.31 Acute diastolic (congestive) heart failure; Z68.42 Body mass index [BMI] 45.0-49.9, adult; I11.0 Hypertensive heart disease with heart failure; I34.0 Nonrheumatic mitral (valve) insufficiency; M10.9 Gout, unspecified; E11.9 Type 2 diabetes mellitus without complications; E66.01 Morbid (severe) obesity due to excess calories; Z20.822 Contact with and (suspected) exposure to COVID-19; K08.89 Other specified disorders of teeth and supporting structures; F17.210 Nicotine dependence, cigarettes, uncomplicated; Z79.891 Long term (current) use of opiate analgesic; Z87.442 Personal history of urinary calculi
CPT/HCPCS: 99223-AI; 99232-AI; 99239; C1769; J1644; J1940; J2250; J2270; J2405; J3010; J7030; Q9967

== ENCOUNTER 2021-10-03 20:57 | Observation (INO) | payer BC ==
[~2021-10-03] VITALS: Ht 185.4 cm; Wt 190.9 kg
[~2021-10-03 20:57] MED LIST changes: +ASPIRIN E.C. 8181 MG PO; +COZAAR 25MG25 MG/TAB PO; +IMODIUM 2MG CAPS2 MG PO; +LASIX 40MG TABL40 MG PO; +LIPITOR 80MG80 MG PO; +LOPRESSOR 550 MG/TAB PO; +NITROSTAT0.4 MG/TAB SL; +TYLENOL W/COD1 UDTAB PO
[2021-10-03 21:52] LABS: BASO # 0.1 K/mm3 (0.0-0.2); BASO % 0.7 % (0.0-2.0); EOS # 0.8 K/mm3 (0.0-0.7); EOS % 4.9 % (0.0-4.0); GRAN # 11.4 K/mm3 (1.4-6.5); GRAN % 70.6 % (42.2-75.2); HEMATOCRIT 50.8 % (42.0-52.0); HEMOGLOBIN 17.1 g/dl (13.5-18.0); LYMPH # 2.7 K/mm3 (1.2-3.4); LYMPH % 16.6 % (20.0-51.0); MEAN CELL VOLUME 88 fl (80.0-100.0); MEAN CORPUSCULAR HEMOGLOBIN 30 pg (27-31); MEAN CORPUSCULAR HGB CONC 34 g/dl (33.0-37.0); MEAN PLATELET VOLUME 9.6 fl (7.4-10.4); MONO # 1.1 K/mm3 (0.1-0.6); MONO % 6.7 % (1.7-9.3); PLATELET COUNT 343 K/mm3 (130-400); RED BLOOD COUNT 5.79 M/mm3 (4.20-5.60); REDCELL DISTRIBUTION WIDTH-CV 13.6 % (11.5-14.5)
[2021-10-03 22:11] LABS: ALBUMIN 3.9 gm/dL (3.5-5.0); BILIRUBIN,TOTAL 0.7 mg/dL (0.2-1.2); C-REACTIVE PROTEIN 0.55 mg/dL (0.00-0.50); CALCIUM 9.5 mg/dL (8.4-10.2); CREATININE, serum 0.9 mg/dL (0.72-1.25); POTASSIUM 4.5 mmol/L (3.5-4.5); TOTAL PROTEIN 8.4 gm/dL (6.2-8.1)
[2021-10-04] VITALS (7 sets, daily range): BP systolic 111–136; BP diastolic 67–85; PULSE 72–85; TEMP 97.5–98.2
[2021-10-04] MEDS ORDERED: ATROVENT NASAL15 ML NS (02:03)
[2021-10-04] MEDS ORDERED: TESSALON PERLE200 MG PO (02:04)
[2021-10-04] MEDS ORDERED: PROVENTIL0.09 MG/A1 IH (02:04)
[2021-10-04] MEDS ORDERED: DOXYCYCLINE HY100 MG PO (02:05)
--- NOTE | 2021-10-04 02:28 | NUR ---
PATIENT TO ROOM 357. ALERT AND ORIENTED. C/O MILD ABD PAIN, PRN DIALUDID WAS JUST GIVEN IN ED BEFORE ARRIVAL. IVF TO L AC. VSS ON ROOM AIR. MED RX COMPLETED. ASSESSMENTS COMPLETED. PATIENT IS INDEPENDENT IN ROOM. CALL LIGHT WITHIN REACH.
[2021-10-04 06:53] LABS: BASO # 0.1 K/mm3 (0.0-0.2); BASO % 0.6 % (0.0-2.0); EOS # 0.6 K/mm3 (0.0-0.7); GRAN % 67.2 % (42.2-75.2); HEMATOCRIT 43.2 % (42.0-52.0); LYMPH # 2.4 K/mm3 (1.2-3.4); LYMPH % 19.8 % (20.0-51.0); MEAN CELL VOLUME 91 fl (80.0-100.0); MEAN CORPUSCULAR HEMOGLOBIN 30 pg (27-31); MEAN CORPUSCULAR HGB CONC 33 g/dl (33.0-37.0); MEAN PLATELET VOLUME 9.6 fl (7.4-10.4); MONO # 0.8 K/mm3 (0.1-0.6); PLATELET COUNT 251 K/mm3 (130-400); RED BLOOD COUNT 4.75 M/mm3 (4.20-5.60); REDCELL DISTRIBUTION WIDTH-CV 13.9 % (11.5-14.5)
[2021-10-04 07:06] LABS: HEMOGLOBIN 14.3 g/dl (13.5-18.0)
[2021-10-04 07:12] LABS: ALBUMIN 3.3 gm/dL (3.5-5.0); CALCIUM 8.3 mg/dL (8.4-10.2); CREATININE, serum 0.83 mg/dL (0.72-1.25); POTASSIUM 4.2 mmol/L (3.5-4.5); TOTAL PROTEIN 6.6 gm/dL (6.2-8.1)
[2021-10-04 07:24] LABS: BILIRUBIN,TOTAL 0.7 mg/dL (0.2-1.2)
--- NOTE | 2021-10-04 08:17 | NUR ---
Pt assessment complete. Pt laying in bed upon entry, he is A/O x4. His breathing is even and unlabored on RA. Pt denies SOB. No nausea at this time. Reports pain has improved slightly but is still at a 6.5/10. NPO at this time. Call light within reach.
--- NOTE | 2021-10-04 13:49 | NUR ---
First visit from the truck caterer. No needs right now.
--- NOTE | 2021-10-04 15:56 | NUR ---
Social Work student and SW met with patient to discuss discharge planning. Patient lives here in [place]. Patient's listed next of kin contact is his father, Neftaly (ph#[phone]). Patient's PCP is Dr. Peguero, and he receives his medications from [facility]. Patient states he uses a CPAP at home, but does not recall what company it is from. Patient is independent with his ADL's. Patient does not have a DPOA-HC on file, and has stated that he is not interested in completing one at this time. Patient is not and does not have any adult children. Discharge plan: Home
--- NOTE | 2021-10-04 18:33 | NUR ---
Pt continued to report persistent pain through the day, requiring PRN pain medications. Morphine giving more relief. Pt states he has passed gas about twice this afternoon. No BM's. Denies N/V.
[2021-10-05 03:46] VITALS: BP 114/68; PULSE 76; TEMP 97.8
[2021-10-05 06:49] LABS: BASO % 0.7 % (0.0-2.0); EOS # 0.4 K/mm3 (0.0-0.7); EOS % 6.5 % (0.0-4.0); GRAN # 3.2 K/mm3 (1.4-6.5); GRAN % 59.9 % (42.2-75.2); HEMATOCRIT 42.1 % (42.0-52.0); HEMOGLOBIN 14.1 g/dl (13.5-18.0); LYMPH # 1.3 K/mm3 (1.2-3.4); MEAN CELL VOLUME 89 fl (80.0-100.0); MEAN CORPUSCULAR HEMOGLOBIN 30 pg (27-31); MEAN CORPUSCULAR HGB CONC 34 g/dl (33.0-37.0); MEAN PLATELET VOLUME 9.8 fl (7.4-10.4); MONO # 0.4 K/mm3 (0.1-0.6); MONO % 7.5 % (1.7-9.3); PLATELET COUNT 191 K/mm3 (130-400); RED BLOOD COUNT 4.75 M/mm3 (4.20-5.60); REDCELL DISTRIBUTION WIDTH-CV 13.3 % (11.5-14.5)
[2021-10-05 07:41] VITALS: BP 142/83; PULSE 77; TEMP 98.3
--- NOTE | 2021-10-05 08:00 | NUR ---
Patient laying in bed, A&Ox4. VSS. IV CDI, fluids infusing. Reports pain in abdomen. No pain medication requested. Patient NPO. No further needs expressed. Call light within reach
--- NOTE | 2021-10-05 10:43 | NUR ---
Discharge paperwork reviewed with the patient. Patient verbalized an understanding to follow doctors order. IV removed, tip intact. No further needs expressed. Patient waiting for ride. Independent in the room. Call light within reach
[2021-10-05 11:46] VITALS: BP 117/74; PULSE 78; TEMP 98
--- NOTE | 2021-10-05 16:49 | NUR ---
Discharge papework reviewed with the patient. Patient verbalized an understanding to follow doctors orders. IV removed, tip intact. No further needs expressed. Call light within reach. Waiting on ride home
--- NOTE | 2021-10-05 16:55 | NUR ---
Patient ambulated independently to the ED entrance to awaiting ride. No further needs expressed
== END 2021-10-05 16:55 | disposition home or self-care (01) ==
LOC: COL.ER 20:57 → MEDICAL 10-04 00:20
PROVIDERS: Emergency Medicine; Surgery; ADMIT Surgery
DX: R10.9 Unspecified abdominal pain (principal); K43.9 Ventral hernia without obstruction or gangrene; I10 Essential (primary) hypertension; F41.8 Other specified anxiety disorders; F41.9 Anxiety disorder, unspecified; E66.01 Morbid (severe) obesity due to excess calories; F17.200 Nicotine dependence, unspecified, uncomplicated; Z98.84 Bariatric surgery status; Z79.899 Other long term (current) drug therapy
CPT/HCPCS: G0378; J1170; J1885; J2270; J2405; J7030; J7120; Q9967

== ENCOUNTER 2021-12-11 05:48 | Emergency (ER) | payer BC ==
[~2021-12-11] VITALS: Ht 185.4 cm; Wt 193.2 kg
[~2021-12-11 05:48] MED LIST changes: +ATROVENT NASAL15 ML NS; +DOXYCYCLINE HY100 MG PO; +PROVENTIL0.09 MG/A1 IH; +TESSALON PERLE200 MG PO
[2021-12-11 06:01] VITALS: TEMP 98.3
[2021-12-11 06:31] LABS: BASO # 0.1 K/mm3 (0.0-0.2); BASO % 0.8 % (0.0-2.0); EOS # 0.6 K/mm3 (0.0-0.7); EOS % 7.8 % (0.0-4.0); GRAN # 3.9 K/mm3 (1.4-6.5); GRAN % 53.3 % (42.2-75.2); HEMATOCRIT 46.1 % (42.0-52.0); HEMOGLOBIN 15.7 g/dl (13.5-18.0); LYMPH # 2.3 K/mm3 (1.2-3.4); LYMPH % 31.8 % (20.0-51.0); MEAN CELL VOLUME 86 fl (80.0-100.0); MEAN CORPUSCULAR HEMOGLOBIN 29 pg (27-31); MEAN CORPUSCULAR HGB CONC 34 g/dl (33.0-37.0); MONO # 0.4 K/mm3 (0.1-0.6); PLATELET COUNT 249 K/mm3 (130-400); RED BLOOD COUNT 5.38 M/mm3 (4.20-5.60); REDCELL DISTRIBUTION WIDTH-CV 12.9 % (11.5-14.5)
[2021-12-11 06:51] LABS: ALBUMIN 3.7 gm/dL (3.5-5.0); BILIRUBIN,TOTAL 0.5 mg/dL (0.2-1.2); CALCIUM 9.4 mg/dL (8.4-10.2); CREATININE, serum 0.82 mg/dL (0.72-1.25); POTASSIUM 4.2 mmol/L (3.5-4.5); TOTAL PROTEIN 7.4 gm/dL (6.2-8.1)
[2021-12-11 06:57] LABS: TROPONIN-I 0.01 ng/mL (0.00-0.033)
[2021-12-11] MEDS ORDERED: TAMIFLU 75MG75 MG PO (07:09)
[2021-12-11 07:30] VITALS: BP 162/109; PULSE 82
== END 2021-12-11 07:36 | disposition home or self-care (01) ==
LOC: COL.ER 05:48
PROVIDERS: Emergency Medicine
DX: J10.1 Influenza due to other identified influenza virus with other respiratory manifestations (principal); E66.01 Morbid (severe) obesity due to excess calories; Z87.891 Personal history of nicotine dependence; Z68.43 Body mass index [BMI] 50.0-59.9, adult; Z20.822 Contact with and (suspected) exposure to COVID-19
CPT/HCPCS: J2405

== ENCOUNTER 2022-08-30 16:53 | Observation (INO) | payer BC ==
[~2022-08-30] VITALS: Ht 185.4 cm; Wt 168.7 kg
[~2022-08-30 16:53] MED LIST changes: +ALDACTONE 25MG25 M1 PO; +ASPIRIN E.C. 8181 MG; +COZAAR100 MG PO; +TAMIFLU 75MG75 MG PO
[2022-08-30 17:36] LABS: BASO # 0.1 K/mm3 (0.0-0.2); BASO % 0.7 % (0.0-2.0); EOS # 0.5 K/mm3 (0.0-0.7); EOS % 4.9 % (0.0-4.0); GRAN # 6.6 K/mm3 (1.4-6.5); GRAN % 67.4 % (42.2-75.2); HEMATOCRIT 44.6 % (42.0-52.0); HEMOGLOBIN 15.6 g/dl (13.5-18.0); MEAN CELL VOLUME 88 fl (80.0-100.0); MEAN CORPUSCULAR HEMOGLOBIN 31 pg (27-31); MEAN CORPUSCULAR HGB CONC 35 g/dl (33.0-37.0); MEAN PLATELET VOLUME 9.6 fl (7.4-10.4); MONO # 0.6 K/mm3 (0.1-0.6); MONO % 6.5 % (1.7-9.3); PLATELET COUNT 264 K/mm3 (130-400); REDCELL DISTRIBUTION WIDTH-CV 12.5 % (11.5-14.5)
[2022-08-30 17:59] LABS: ALBUMIN 3.7 gm/dL (3.5-5.0); BILIRUBIN,TOTAL 0.6 mg/dL (0.2-1.2); CALCIUM 9.2 mg/dL (8.4-10.2); CREATININE, serum 0.82 mg/dL (0.72-1.25); POTASSIUM 4.2 mmol/L (3.5-4.5); TOTAL PROTEIN 7.9 gm/dL (6.2-8.1)
[2022-08-30 18:04] LABS: TROPONIN-I 0.02 ng/mL (0.00-0.033)
[2022-08-31] VITALS (14 sets, daily range): BP systolic 105–145; BP diastolic 61–93; PULSE 68–87; TEMP 97.4–98.6
[2022-08-31 06:48] LABS: CALCIUM 8.9 mg/dL (8.4-10.2); CREATININE, serum 0.82 mg/dL (0.72-1.25); MAGNESIUM 1.9 mg/dL (1.6-2.6); POTASSIUM 4.4 mmol/L (3.5-4.5)
[2022-08-31 06:56] LABS: BASO % 0.5 % (0.0-2.0); EOS # 0.5 K/mm3 (0.0-0.7); EOS % 6.4 % (0.0-4.0); GRAN # 4.6 K/mm3 (1.4-6.5); GRAN % 62.6 % (42.2-75.2); HEMATOCRIT 45.4 % (42.0-52.0); HEMOGLOBIN 14.7 g/dl (13.5-18.0); LYMPH # 1.7 K/mm3 (1.2-3.4); LYMPH % 23.5 % (20.0-51.0); MEAN CELL VOLUME 91 fl (80.0-100.0); MEAN CORPUSCULAR HEMOGLOBIN 30 pg (27-31); MEAN CORPUSCULAR HGB CONC 32 g/dl (33.0-37.0); MEAN PLATELET VOLUME 9.6 fl (7.4-10.4); MONO # 0.5 K/mm3 (0.1-0.6); MONO % 6.7 % (1.7-9.3); PLATELET COUNT 248 K/mm3 (130-400); RED BLOOD COUNT 4.97 M/mm3 (4.20-5.60); REDCELL DISTRIBUTION WIDTH-CV 12.9 % (11.5-14.5)
--- NOTE | 2022-08-31 07:00 | NUR ---
PT RESTING IN BED. PT IS NPO, AWAITING FOR CARDIOLOGY CONSULT. PT HAS CALL LIGHT WITHIN REACH AND INSTRUCTED TO CALL WITH ALL NEEDS.
--- NOTE | 2022-08-31 10:23 | NUR ---
Elvie: No latter-day preference Situation: brake repair mechanic went by room on rounds Background: Pt was sitting up on the side of the bed Assessment: Pt has no needs right now. Recommendation: brake repair mechanic will follow up as needed
--- NOTE | 2022-08-31 13:00 | NUR ---
PT BACK FROM CARDIAC CATH. PT IS AXOX4. PT INSTRUCTED ON NOT USING OR BENDING RIGHT WRIST. PT GIVEN CALL LIGHT AND PHONE, INSRUCTED ON HOW TO ORDER LUNCH. WATER AND JUICE GIVEN.
--- NOTE | 2022-08-31 15:57 | NUR ---
Field Agronomist met with patient to discuss discharge planning. Patient lives in [place] with his sixteen year old daughter who he reports is staying with a friend while he is hospitalized. Patient is employed at [employer] and is normally independent with ADLS. Patient uses a CPAP and no other DME. Patient sees Dr. Peguero for primary care and obtains medications from [facility] with no difficulties. Patient is not and has no adult children. Patient's next of kin, his father Neftaly a couple months ago. Patient is considering who to make his emergency contact and does not have DPOA-HC set up at this time. Patient plans to return home at time of discharge. Discharge Plan: Home
--- NOTE | 2022-08-31 17:36 | NUR ---
TR BAND REMOVED. SITE CLEANED AND BANAID APPLIED. PT INSTRUCTED TO NOT BEND WRIST OR LIFT WITH RIGHT SIDE.
[2022-09-01 00:07] VITALS: BP 126/71; PULSE 71; TEMP 98
--- NOTE | 2022-09-01 03:54 | NUR ---
NURSING SHIFT ASSESSMENT COMPLETED. THE PATIENT REPORTED LEFT UPPER CHEST AND SHOULDER PAIN 5/10. THE PATIENT STATED THAT THIS PAIN IS THE SAME PAIN HE HAD WHEN HE CAME INTO THE ER. THIS PAIN HAS NOT GONE AWAY PER THE PATIENT SINCE ADMISSION. THE PAIN IS DULL AND HEAVY. DR. MOSS NOTIFIED OF THIS PAIN AND A NEW ORDER WAS RECEIVED FOR NORCO ONCE TO BE GIVEN INSTEAD OF THE IV MORPHINE. WILL MONITOR. THE PLAN OF CARE WAS DISCUSSED AND ALL QUESTIONS AND CONCERNS WERE ADDRESSED. RIGHT RADIAL WRIST TR BAND SITE WNL AT THIS TIME.
[2022-09-01 05:36] VITALS: BP 150/85; PULSE 72; TEMP 97.4
[2022-09-01 06:42] LABS: CHOLESTEROL RISK RATIO 6.7
[2022-09-01 07:44] VITALS: BP 145/98; PULSE 73; TEMP 97.6
[2022-09-01 09:00] VITALS: BP_SYST 145; PULSE 73; TEMP 97.6
[2022-09-01] MEDS ORDERED: BACTRIM DS 8001 TAB PO (09:31)
[2022-09-01 11:36] VITALS: BP 126/85; PULSE 72; TEMP 97.3
[2022-09-01 13:00] VITALS: BP_SYST 126; PULSE 72; TEMP 97.3
[2022-09-01] MEDS ORDERED: FLEXERIL5 MG PO (15:15)
[2023-04-02] MEDS ORDERED: PROAIR HFA0.09 MG/AC IH (13:28)
[2023-04-04] MEDS ORDERED: NORCO 325 MG-51 TAB PO (08:56)
[2023-04-14] MEDS ORDERED: ROBAXIN 50500 MG/TAB PO (01:14)
[2023-04-14] MEDS ORDERED: FLEXERIL 1010 MG/TAB PO (14:46)
[2023-04-15] MEDS ORDERED: MEDROL 4MG DOSPA4 MG PO (12:11)
[2023-07-16] MEDS ORDERED: OZEMPIC1 MG/0.71 SQ (11:17)
[2023-07-18] MEDS ORDERED: LOPRESSOR 225 MG/TAB PO (10:36)
[2023-07-18] MEDS ORDERED: GLUCOPHAGE1000 MG PO (11:12)
[2023-07-18] MEDS ORDERED: LIPITOR 40MG TA40 MG PO (11:13)
[2023-08-24] MEDS ORDERED: OZEMPIC0.25 MG/02 SQ (10:57)
== END 2022-09-01 15:54 | disposition home or self-care (01) ==
LOC: COL.ER 16:53 → MEDICAL 19:16
PROVIDERS: Nurse Practitioner; Student in an Organized Health Care Education/Training Program; ADMIT Internal Medicine
DX: R07.9 Chest pain, unspecified (principal); L02.411 Cutaneous abscess of right axilla; I11.0 Hypertensive heart disease with heart failure; I42.0 Dilated cardiomyopathy; I50.20 Unspecified systolic (congestive) heart failure; I44.1 Atrioventricular block, second degree; K43.9 Ventral hernia without obstruction or gangrene; I20.0 Unstable angina; E66.01 Morbid (severe) obesity due to excess calories; K21.9 Gastro-esophageal reflux disease without esophagitis; F17.210 Nicotine dependence, cigarettes, uncomplicated; F41.9 Anxiety disorder, unspecified; F32.9 Major depressive disorder, single episode, unspecified; G47.30 Sleep apnea, unspecified; Z68.42 Body mass index [BMI] 45.0-49.9, adult; Z79.82 Long term (current) use of aspirin; Z79.899 Other long term (current) drug therapy
CPT/HCPCS: OP; C1769; G0378; J1644; J1650; J2250; J2270; J3010; Q9967

== ENCOUNTER 2023-05-11 18:20 | Emergency (ER) | payer BC ==
[~2023-05-11] VITALS: Ht 185.4 cm; Wt 218.2 kg
[~2023-05-11 18:20] MED LIST changes: +BACTRIM DS 8001 TAB PO; +COZAAR 50MG50 MG/TAB PO; -COZAAR100 MG PO; +FLEXERIL5 MG PO; +MEDROL 4MG DOSPA4 MG PO; +PROAIR HFA0.09 MG/AC IH; +ROBAXIN 50500 MG/TAB PO
[2023-05-11 18:34] VITALS: TEMP 97.3
[2023-05-11 19:30] VITALS: BP 140/82; PULSE 88
== END 2023-05-11 19:30 | disposition home or self-care (01) ==
LOC: COL.ER 18:20
DX: F10.129 Alcohol abuse with intoxication, unspecified (principal); F17.200 Nicotine dependence, unspecified, uncomplicated; Y90.3 Blood alcohol level of 60-79 mg/100 ml

== ENCOUNTER 2023-10-16 12:51 | Outpatient (RCR) | payer OTHER ==
[~2023-10-16 12:51] MED LIST changes: -COZAAR 50MG50 MG/TAB PO; +COZAAR100 MG PO; +LIPITOR 40MG TA40 MG PO; +OZEMPIC0.25 MG/02 SQ; +OZEMPIC1 MG/0.71 SQ
== END 2023-10-26 | disposition home or self-care (01) ==
LOC: WSOH
DX: M51.36 Other intervertebral disc degeneration, lumbar region (principal); Y99.0 Civilian activity done for income or pay; I10 Essential (primary) hypertension; K21.9 Gastro-esophageal reflux disease without esophagitis; F41.9 Anxiety disorder, unspecified; E66.01 Morbid (severe) obesity due to excess calories; M10.9 Gout, unspecified

== ENCOUNTER 2024-01-04 16:44 | Inpatient (IN) | payer BC ==
[~2024-01-04] VITALS: Ht 185.4 cm; Wt 201.4 kg
[~2024-01-04 16:44] MED LIST changes: -OZEMPIC0.25 MG/02 SQ; +OZEMPIC2 MG/0.75 SQ
[2024-01-04] MEDS ORDERED: Ondansetron 4 MG/2 ML VIAL IV ONE (19:15)
[2024-01-04 19:55] LABS: BASO # 0.1 K/mm3 (0.0-0.2); BASO % 0.5 % (0.0-2.0); EOS # 0.3 K/mm3 (0.0-0.7); EOS % 2.2 % (0.0-4.0); GRAN # 8.8 K/mm3 (1.4-6.5); GRAN % 75.9 % (42.2-75.2); HEMATOCRIT 46.5 % (42.0-52.0); HEMOGLOBIN 15.1 g/dl (13.5-18.0); LYMPH # 1.9 K/mm3 (1.2-3.4); LYMPH % 16.1 % (20.0-51.0); MEAN CELL VOLUME 91 fl (80.0-100.0); MEAN CORPUSCULAR HEMOGLOBIN 30 pg (27-31); MEAN CORPUSCULAR HGB CONC 33 g/dl (33.0-37.0); MEAN PLATELET VOLUME 10.8 fl (7.4-10.4); MONO # 0.6 K/mm3 (0.1-0.6); MONO % 4.9 % (1.7-9.3); PLATELET COUNT 296 K/mm3 (130-400); RED BLOOD COUNT 5.09 M/mm3 (4.20-5.60); REDCELL DISTRIBUTION WIDTH-CV 13.3 % (11.5-14.5)
[2024-01-04] MEDS ORDERED: Morphine 4 MG/ML VIAL IV ONE (20:00)
[2024-01-04] MEDS ORDERED: NS 1,000 ML IV ONE ×2 (20:00→22:15)
[2024-01-04 20:15] LABS: ALBUMIN 3.5 g/dL (3.5-5.0); CALCIUM 9.9 mg/dL (8.4-10.2); CREATININE, serum 1.05 mg/dL (0.72-1.25); POTASSIUM 4.4 mEq/L (3.5-4.5); TOTAL PROTEIN 7.8 g/dl (6.2-8.1)
[2024-01-04 20:23] LABS: TROPONIN-I 0.03 ng/mL (0.00-0.033)
[2024-01-04 20:47] LABS: BILIRUBIN,TOTAL 1.1 mg/dL (0.2-1.2)
[2024-01-04] MEDS ORDERED: NS 50 ML IV SCH (20:47)
[2024-01-04] MEDS ORDERED: Iohexol 300 - 100 ML VIAL IV ONE (20:47)
[2024-01-04] MEDS ORDERED: droPERidol 2.5 MG/ML 2 ML VIAL IV ONE (21:30)
[2024-01-04] MEDS ORDERED: dilTIAZem 25 MG/5 ML VIAL IV ONE ×3 (22:45→23:45)
[2024-01-04 23:04] LABS: COLLECTION METHOD CLEAN CATCH
[2024-01-04 23:21] LABS: PH 5.5 (5.0-8.5); URINE APPEARANCE CLEAR (CLEAR/HAZY); URINE BLOOD NEGATIVE (NEGATIVE); URINE COLOR YELLOW (YELLOW); URINE GLUCOSE NEGATIVE (NEGATIVE); URINE KETONE NEGATIVE (NEGATIVE); URINE NITRATE NEGATIVE (NEGATIVE); URINE PROTEIN(semi-quant) 2+ (NEGATIVE)
[2024-01-04] MEDS ORDERED: Acetaminophen 325 MG TAB PO PRN (23:45)
[2024-01-04] MEDS ORDERED: Heparin 5,000 UNITS/ML 1 ML VIAL IV ONE (23:45)
[2024-01-04] MEDS ORDERED: Heparin/D5W 250 ML IV SCH (23:45)
[2024-01-04] MEDS ORDERED: Magnesium Sulfate 4% 50 ML IV ONE (23:45)
[2024-01-04] MEDS ORDERED: Heparin 5,000 UNITS/ML 1 ML VIAL IV PRN (23:45)
[2024-01-04] MEDS ORDERED: Ondansetron 4 MG/2 ML VIAL IV PRN (23:45)
[2024-01-04] MEDS ORDERED: NS 1,000 ML IV SCH (23:45)
[2024-01-05] VITALS (13 sets, daily range): BP systolic 86–147; BP diastolic 56–105; PULSE 73–112; TEMP 98–98.3
[2024-01-05 00:12] LABS: PARTIAL THROMBOPLASTIN TIME 28.8 SECONDS (26.0-37.0)
[2024-01-05] MEDS ORDERED: LORazepam 0.5 MG TAB PO ONE (00:15)
[2024-01-05] MEDS ORDERED: Morphine 4 MG/ML VIAL IV ONE (01:30)
--- NOTE | 2024-01-05 02:17 | NUR ---
PT RESTLESS. UNABLE TO GET COMFORTABLE. NICOTINE PATCH APPLIED EARLY AT PT REQUEST. ATIVAN AND MORPHINE GIVEN. PT STATES NO RELIEF WITH MEDS. FAN ON. IV ATTEMPTED X2. MANDY CHEN REQUESTED TO ATTEMPT.
[2024-01-05] MEDS ORDERED: Cyclobenzaprine 10 MG TAB PO PRN (04:15)
[2024-01-05] MEDS ORDERED: Morphine 4 MG/ML VIAL IV PRN (04:15)
[2024-01-05 05:19] LABS: ALBUMIN 3.2 g/dL (3.5-5.0); BILIRUBIN,TOTAL 1.8 mg/dL (0.2-1.2); CALCIUM 9.1 mg/dL (8.4-10.2); CREATININE, serum 0.92 mg/dL (0.72-1.25); TOTAL PROTEIN 6.9 g/dl (6.2-8.1)
[2024-01-05 05:22] LABS: BASO # 0.1 K/mm3 (0.0-0.2); BASO % 0.5 % (0.0-2.0); EOS # 0.3 K/mm3 (0.0-0.7); EOS % 2.8 % (0.0-4.0); GRAN # 8.3 K/mm3 (1.4-6.5); GRAN % 71.8 % (42.2-75.2); HEMATOCRIT 40.4 % (42.0-52.0); HEMOGLOBIN 13.5 g/dl (13.5-18.0); LYMPH # 2.2 K/mm3 (1.2-3.4); LYMPH % 19.4 % (20.0-51.0); MEAN CELL VOLUME 89 fl (80.0-100.0); MEAN CORPUSCULAR HEMOGLOBIN 30 pg (27-31); MEAN CORPUSCULAR HGB CONC 33 g/dl (33.0-37.0); MONO # 0.6 K/mm3 (0.1-0.6); MONO % 5.2 % (1.7-9.3); PLATELET COUNT 291 K/mm3 (130-400); RED BLOOD COUNT 4.53 M/mm3 (4.20-5.60); REDCELL DISTRIBUTION WIDTH-CV 13.6 % (11.5-14.5)
[2024-01-05 05:38] LABS: THYROID STIMULATING HORMONE 5.038 uIU/mL (0.350-4.940)
[2024-01-05 07:21] LABS: TRICYCLIC ANTIDEPRESS URINE NEGATIVE (NEGATIVE)
[2024-01-05 07:34] LABS: CHOLESTEROL RISK RATIO 4.2
--- NOTE | 2024-01-05 07:39 | NUR ---
PT RESTED WELL AFTER FLEXERIL GIVEN. PROVIDER WAS NOTIFIED THAT NICOTINE PATCH WAS APPLIED EARLY TO SEE IF THAT WOULD HELP ANXIETY. PT REMAINS IN AFIB WITH A CONTROLLED RATE. NEXT HEP XA IS AT 0900. PT HAS POOR VENOUS ACCESS AND WOULD BENEFIT FROM A PICC LINE. NO SIGN OF DISTRESS AT THIS TIME. CONTINUE PLAN OF CARE.
--- NOTE | 2024-01-05 08:20 | NUR ---
Patient laying in bed, resting with eyes closed. Diltizem, Heparin, and IV fluids infusing without difficulties, voiding in urinal. Will watch for significan changes.
[2024-01-05] MEDS ORDERED: ONE-A-DAY ESSE1 EACH PO (08:59)
[2024-01-05] MEDS ORDERED: Lidocaine 4% Topical Patch TP SCH (09:00)
[2024-01-05] MEDS ORDERED: Nicotine 14 MG DAILY PATCH TD SCH (09:00)
[2024-01-05] MEDS ORDERED: 1/2 NS 1,000 ML IV SCH (09:30)
--- NOTE | 2024-01-05 09:54 | NUR ---
kennel worker met with patient to discuss discharge planning. Pt lives with his adult daughter, Prerna [phone] in [place]. He sees DELMA Feliciano and obtains medications from [facility] with no difficulties. He reports to be independent with ADLs and uses no DME. He does not have a DPOA-HC and declines one. Pt reports no concerns with mobility. Discharge Plan: home
[2024-01-05] MEDS ORDERED: Lidocaine PF 2% (20 MG/ML) 5 ML VIAL IV ONE (11:34)
[2024-01-05] MEDS ORDERED: Apixaban 5 MG TABLET PO SCH (15:00)
[2024-01-05] MEDS ORDERED: ELIQUIS 5MG PO (15:12)
--- NOTE | 2024-01-05 15:17 | NUR ---
PATIENT ALERT AND ORIENTED, REPORTS SOB, POSITIONED FOR COMFORT. VSS. PATIENT TRANSPORTED VIA BARIATRIC BED TO ICU 6. VITAL SIGNS TAKEN ON ARRIVAL, VSS. PATIENT DENIES CHEST PAIN AT THIS TIME. CALL LIGHT AND PERSONAL BELONGINGS PLACED WITHIN REACH, BED IN LOWEST POSITION. TRANSFER OF CARE TO ERIC. GUSTAVO
[2024-01-05] MEDS ORDERED: TOPROL XL 25MG25 MG PO (15:34)
--- NOTE | 2024-01-05 17:07 | NUR ---
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
--- NOTE | 2024-01-05 17:11 | NUR ---
Patient discharged at 1615, no complications noted, Alert oriented x4, breathing well, ambulates, chew/swallow food, urinated. Reviewed information about medications, procedures, follow up appointments. Removed IVs from left hand and left AC, no complications. Belongings gathered, patient changed into his home clothes. Escort out by wheelchair with family to [facility].
[2024-01-05] MEDS ORDERED: Atorvastatin 40 MG TAB PO SCH (21:00)
== END 2024-01-05 16:15 | disposition home or self-care (01) | DRG 309 ==
LOC: COL.ER 16:44 → ICU 23:56
PROVIDERS: Nurse Practitioner Primary Care; Physician Assistant; ADMIT Internal Medicine
DX: I48.91 Unspecified atrial fibrillation (principal); Z68.43 Body mass index [BMI] 50.0-59.9, adult; I10 Essential (primary) hypertension; F17.210 Nicotine dependence, cigarettes, uncomplicated; K43.9 Ventral hernia without obstruction or gangrene; F41.9 Anxiety disorder, unspecified; F31.9 Bipolar disorder, unspecified; E66.9 Obesity, unspecified; I25.10 Atherosclerotic heart disease of native coronary artery without angina pectoris; M10.9 Gout, unspecified; K21.9 Gastro-esophageal reflux disease without esophagitis; I51.3 Intracardiac thrombosis, not elsewhere classified; E11.9 Type 2 diabetes mellitus without complications; E78.5 Hyperlipidemia, unspecified; Z90.49 Acquired absence of other specified parts of digestive tract; Z79.84 Long term (current) use of oral hypoglycemic drugs; Z79.899 Other long term (current) drug therapy; Z79.82 Long term (current) use of aspirin
CPT/HCPCS: J1644; J1790; J2270; J2405; J2704; J3475; J7030; Q9967

== ENCOUNTER 2024-02-14 10:49 | Day surgery (SDC) | payer BC ==
[~2024-02-14 10:49] MED LIST changes: +ELIQUIS 5MG PO; +ONE-A-DAY ESSE1 EACH PO; +TOPROL XL 25MG25 MG PO
[2024-02-14] MEDS ORDERED: NS Flush 10 ML SYRINGE PRN ICA ×2 (11:15→11:30)
[2024-02-14] MEDS ORDERED: 1/2 NS 1,000 ML IV SCH (11:30)
[2024-02-14 11:50] LABS: HEMATOCRIT 46.5 % (42.0-52.0); HEMOGLOBIN 15.9 g/dl (13.5-18.0); MEAN CELL VOLUME 84 fl (80.0-100.0); MEAN CORPUSCULAR HEMOGLOBIN 29 pg (27-31); MEAN CORPUSCULAR HGB CONC 34 g/dl (33.0-37.0); MEAN PLATELET VOLUME 9.7 fl (7.4-10.4); PLATELET COUNT 280 K/mm3 (130-400); RED BLOOD COUNT 5.51 M/mm3 (4.20-5.60); REDCELL DISTRIBUTION WIDTH-CV 13.1 % (11.5-14.5)
[2024-02-14 11:52] LABS: INR 1.4 (0.8-3.0); PROTHROMBIN TIME 15.4 SECONDS (9.7-12.8)
[2024-02-14 11:54] LABS: PARTIAL THROMBOPLASTIN TIME 35.7 SECONDS (26.0-37.0)
--- NOTE | 2024-02-14 11:57 | NUR ---
PT IS BEING SENT HOME BY DR. ULRICH WITH NO PROCEDURE COMPLETED. DR ULRICH AND PT DISCUSSED RISKS OF HAVING PROCEDURE TODAY AND DECIDED THAT THE RISKS WERE TOO HIGH TO SAFELY PERFORM PROCEDURE TODAY. IV DISCONTINUED AND PT AMBULATED TO MAIN LOBBY WITH DAUGHTER. DR NOTE GIVEN TO PT PRIOR TO DISCHARGE.
[2024-02-14 12:33] LABS: CALCIUM 10.6 mg/dL (8.4-10.2); CREATININE, serum 0.81 mg/dL (0.72-1.25); MAGNESIUM 1.7 mg/dL (1.6-2.6); POTASSIUM 3.9 mEq/L (3.5-4.5)
[2024-02-14 12:53] LABS: THYROID STIMULATING HORMONE 1.592 uIU/mL (0.350-4.940)
--- NOTE | 2024-02-14 14:02 | NUR ---
barn worker was informed pt will discharge and needs a Life Vest sent to [facility]. SW faxed information and medical necessity document to [facility].
[2024-02-14] MEDS ORDERED: NS Flush 10 ML SYRINGE BID ICA SCH ×2 (21:00)
== END 2024-02-14 12:47 | disposition home or self-care (01) ==
LOC: COL.CAR 10:49
PROVIDERS: Internal Medicine Cardiovascular Disease
DX: I48.0 Paroxysmal atrial fibrillation (principal); Z53.9 Procedure and treatment not carried out, unspecified reason

== ENCOUNTER 2024-03-13 07:28 | Day surgery (SDC) | payer BC ==
[~2024-03-13] VITALS: Ht 185.5 cm; Wt 184.3 kg
[~2024-03-13 07:28] MED LIST changes: +Amiodarone 200 MG TAB PO SCH; +LR 1,000 ML IV SCH
[2024-03-13] MEDS ORDERED: OZEMPIC2 MG/0.75 SQ (08:08)
[2024-03-13] MEDS ORDERED: LANOXIN 0.25M0.25 MG PO (08:10)
[2024-03-13] MEDS ORDERED: LASIX 20MG TABL20 MG PO (08:12)
[2024-03-13] MEDS ORDERED: ZEBETA 5MG5 MG PO (08:14)
[2024-03-13] MEDS ORDERED: K-TAB20 PO (08:15)
[2024-03-13 08:23] VITALS: BP 94/78; PULSE 78; TEMP 98.3
[2024-03-13 08:26] LABS: CALCIUM 9.7 mg/dL (8.4-10.2); CREATININE, serum 0.87 mg/dL (0.72-1.25); POTASSIUM 4.2 mEq/L (3.5-4.5)
[2024-03-13 08:45] LABS: HEMATOCRIT 48.3 % (42.0-52.0); HEMOGLOBIN 16.2 g/dl (13.5-18.0); MEAN CELL VOLUME 86 fl (80.0-100.0); MEAN CORPUSCULAR HEMOGLOBIN 29 pg (27-31); MEAN CORPUSCULAR HGB CONC 34 g/dl (33.0-37.0); MEAN PLATELET VOLUME 10.3 fl (7.4-10.4); PLATELET COUNT 323 K/mm3 (130-400); RED BLOOD COUNT 5.62 M/mm3 (4.20-5.60); REDCELL DISTRIBUTION WIDTH-CV 13.4 % (11.5-14.5)
[2024-03-13 09:03] LABS: INR 1.3 (0.8-3.0); PROTHROMBIN TIME 14.6 SECONDS (9.7-12.8)
[2024-03-13 09:06] LABS: PARTIAL THROMBOPLASTIN TIME 32.9 SECONDS (26.0-37.0)
[2024-03-13] MEDS ORDERED: PACERONE400 MG PO (09:07)
[2024-03-13 09:15] VITALS: BP 114/83; PULSE 81
[2024-03-13 09:30] VITALS: BP 99/54; PULSE 85
[2024-03-13 09:45] VITALS: BP 107/70; PULSE 81
[2024-03-13 09:49] LABS: MAGNESIUM 1.8 mg/dL (1.6-2.6)
[2024-03-13 10:00] VITALS: BP 99/76; PULSE 81
[2024-03-13 10:11] LABS: THYROID STIMULATING HORMONE 3.039 uIU/mL (0.350-4.940)
[2024-03-13 10:15] VITALS: BP 111/85; PULSE 86
[2024-03-13] MEDS ORDERED: Amiodarone 200 MG TAB PO SCH (10:15)
--- NOTE | 2024-03-13 10:36 | NUR ---
During review of DC paperwork, pt states he recieved message from his pharmacy that new rx for amniodarone is out of stock and being ordered, and should be available tomorrow. Dr Knight notified of this and arranges for home pack to be sent from our pharmacy to cover pt for 2 days to prevent delay in pt taking med as perscribed. Home pack of med and dosing instructions reviewed with pt, and pt ed packet about med given to pt. He expresses understanding. Other discharge instructions also reviewed with pt, he expresses understanding. He has rested comfortably during recovery period. Had c/o slight discomfort at site of cardioversion patches, silvadene cream was applied and remaining med also to be sent home with pt, he expresses understanding of use of med. He has been sipping water, has denied desire for food during recovery. He is steady on feet in room. IV DC'd, site wrapped with coban.
--- NOTE | 2024-03-13 11:15 | NUR ---
Pt waited in room for work release note to be printed. Continues to deny complaints or needs. He is assisted out to daughter's car by wheelchair with beloningings and meds.
== END 2024-03-13 11:15 | disposition home or self-care (01) ==
LOC: COL.CAR 07:28
PROVIDERS: Internal Medicine Cardiovascular Disease
DX: I48.0 Paroxysmal atrial fibrillation (principal); E78.2 Mixed hyperlipidemia; I10 Essential (primary) hypertension; G47.33 Obstructive sleep apnea (adult) (pediatric); E66.01 Morbid (severe) obesity due to excess calories; Z79.899 Other long term (current) drug therapy; Z68.43 Body mass index [BMI] 50.0-59.9, adult; Z79.82 Long term (current) use of aspirin; Z87.891 Personal history of nicotine dependence
CPT/HCPCS: J0282; J2704; J7060; J7120